=== PATIENT | female | born 1960 | race Caucasian/White ===

== ENCOUNTER 2020-10-02 12:48 | Outpatient (REF) | payer BC, SELFPAY ==
--- NOTE | ~2020-10-02 | MM_ITS ---
EXAMINATION: MM DIAGNOSTIC DIGITAL BREAST TOMOSYNTHESIS, RIGHT CLINICAL INFORMATION: Short interval six-month follow-up probable benign asymmetry outer right breast. No known family history breast cancer. The lifetime risk of breast cancer based on the Tyrer-Cuzick Model is 17%. COMPARISON: Mammography: 03/09/2020, 03/04/2020 (BI-RADS 0), 05/16/2019, 11/10/2017 TECHNIQUE: Digital breast tomosynthesis is performed in both the craniocaudal and mediolateral oblique views along with computer-aided detection (CAD). Synthesized 2D images are generated from the tomosynthesis. FINDINGS: The breasts are heterogeneously dense, which may obscure small masses (ACR BI-RADS breast composition Category c). Parenchymal pattern is similar to prior exams. There is no developing density or interval mass or architectural change in the area of recent concern mid to posterior outer right breast. There are no abnormal calcifications. The axilla and skin contours are unremarkable. Results are provided to the patient at time of visit by the technologist. Right breast will be reassessed again at time of annual bilateral exam, due in 6 months. MM/MM tomosynthesis diagnostic RT IMPRESSION: No significant changes. No developing density or interval architectural abnormality in the outer breast. ASSESSMENT: BI-RADS 3: Probably Benign RECOMMENDATION: Diagnostic mammography at time of annual bilateral exam, due in 6 months. This patient's information was entered into a reminder system with a target due date for their next mammogram.
== END 2020-10-02 12:49 | disposition home or self-care (01) ==
LOC: HO.MAMMO 12:48
PROVIDERS: PCP Internal Medicine; Visit Provider Internal Medicine
DX: R92.8 Other abnormal and inconclusive findings on diagnostic imaging of breast (principal)
CPT/HCPCS: 77061; 77065

== ENCOUNTER 2021-04-05 12:44 | Outpatient (REF) | payer BC, SELFPAY ==
--- NOTE | ~2021-04-05 | MM_ITS ---
EXAMINATION: MM DIAGNOSTIC DIGITAL BREAST TOMOSYNTHESIS, BILATERAL CLINICAL INFORMATION: Six-month follow-up right breast for density. Yearly left breast. The lifetime risk of breast cancer based on the Tyrer-Cuzick Model is 16.7%. COMPARISON: Mammography: October 02, 2020 and studies dating back to September 02, 2016 TECHNIQUE: Digital breast tomosynthesis is performed in both the craniocaudal and mediolateral oblique views along with computer-aided detection (CAD). Synthesized 2D images are generated from the tomosynthesis. FINDINGS: The breasts are heterogeneously dense, which may obscure small masses (ACR BI-RADS breast composition Category c). There are no significant masses, abnormal calcifications, or other abnormalities. Results are provided to the patient at time of visit by the technologist. MM/MM tomosynthesis diagnostic BI IMPRESSION: There are no significant changes from prior study. ASSESSMENT: BI-RADS 1: Negative RECOMMENDATION: Routine annual mammography screening due in 12 months. This patient's information was entered into a reminder system with a target due date for their next mammogram.
== END 2021-04-05 12:45 | disposition home or self-care (01) ==
LOC: HO.MAMMO 12:44
PROVIDERS: PCP Internal Medicine; Visit Provider Internal Medicine
DX: R92.2 Inconclusive mammogram (principal)
CPT/HCPCS: 77062; 77066

== ENCOUNTER 2021-04-18 11:40 | Emergency (ER) | payer BC, SELFPAY ==
--- NOTE | ~2021-04-18 | XR_ITS ---
EXAMINATION: XR ELBOW, RIGHT CLINICAL INFORMATION: Right elbow fracture, follow-up. COMPARISON: 04/18/2021 right elbow radiographs at 12:18 PM TECHNIQUE: AP, lateral, and oblique views of the right elbow. XR/XR elbow RT min 3V FINDINGS/IMPRESSION: Positioning is suboptimal limiting evaluation. Known proximal ulnar and radial fractures demonstrate improved anatomic alignment status post reduction.
--- NOTE | ~2021-04-18 | XR_ITS ---
EXAMINATION: RIGHT HAND/WRIST, RIGHT ELBOW AND RIGHT FOREARM CLINICAL INFORMATION: Fall. COMPARISON: None TECHNIQUE: Right hand/wrist 4 views. Right elbow 3 views, right forearm 2 views. FINDINGS: Right elbow: There is a comminuted fracture proximal ulna with lateral radial dislocation. Suspect a small fracture involving the radial head as well. Patient was unable to flex elbow joint secondary to joint effusion. Right forearm: There is no additional fracture seen besides the proximal comminuted humeral fracture and a chip fracture involving the right radial head with dislocation of the radius. Right hand and wrist: There is no visible acute fracture, dislocation or subluxation seen. The soft tissues are normal. XR/XR hand wrist RT IMPRESSION: Comminuted fracture proximal ulna with displacement. Radial head chip fracture with dislocated radial head at the joint with moderate joint effusion. No additional fracture seen in the right hand or the right forearm.
--- NOTE | ~2021-04-18 | XR_ITS ---
EXAMINATION: RIGHT HAND/WRIST, RIGHT ELBOW AND RIGHT FOREARM CLINICAL INFORMATION: Fall. COMPARISON: None TECHNIQUE: Right hand/wrist 4 views. Right elbow 3 views, right forearm 2 views. FINDINGS: Right elbow: There is a comminuted fracture proximal ulna with lateral radial dislocation. Suspect a small fracture involving the radial head as well. Patient was unable to flex elbow joint secondary to joint effusion. Right forearm: There is no additional fracture seen besides the proximal comminuted humeral fracture and a chip fracture involving the right radial head with dislocation of the radius. Right hand and wrist: There is no visible acute fracture, dislocation or subluxation seen. The soft tissues are normal. XR/XR forearm RT 2V IMPRESSION: Comminuted fracture proximal ulna with displacement. Radial head chip fracture with dislocated radial head at the joint with moderate joint effusion. No additional fracture seen in the right hand or the right forearm.
--- NOTE | ~2021-04-18 | XR_ITS ---
EXAMINATION: RIGHT HAND/WRIST, RIGHT ELBOW AND RIGHT FOREARM CLINICAL INFORMATION: Fall. COMPARISON: None TECHNIQUE: Right hand/wrist 4 views. Right elbow 3 views, right forearm 2 views. FINDINGS: Right elbow: There is a comminuted fracture proximal ulna with lateral radial dislocation. Suspect a small fracture involving the radial head as well. Patient was unable to flex elbow joint secondary to joint effusion. Right forearm: There is no additional fracture seen besides the proximal comminuted humeral fracture and a chip fracture involving the right radial head with dislocation of the radius. Right hand and wrist: There is no visible acute fracture, dislocation or subluxation seen. The soft tissues are normal. XR/XR elbow RT 2V IMPRESSION: Comminuted fracture proximal ulna with displacement. Radial head chip fracture with dislocated radial head at the joint with moderate joint effusion. No additional fracture seen in the right hand or the right forearm.
--- NOTE | 2021-04-18 12:27 | ED.UPPEXIN ---
HPI - Extremity Injury (Upper) General Chief Complaint: Extremity Injury, Upper Stated Complaint: FALL R ARM WRIST SHOULDER Time Seen by Provider: 04/18/21 12:26 Source: patient and family Mode of arrival: ambulatory Limitations: no limitations History of Present Illness HPI narrative: 60 y/o right hand dominant female with no significant medical history presenting to the ER today after she fell today while helping her brother move. She was walking down three steps when she missed a step and fell backward onto her right elbow. She heard a snap. She had immediate pain and was unable to move her right arm. She did not hit her head or lose consciousness. Pain is 10/10 with any movement, 6/10 at rest with adduction. complaint: injury to: right and elbow Onset (ago): minute(s) Other Extremity Injury: right: elbow Other injuries: none Handedness: right Place: home Severity: severe Severity scale (1-10): 10 Relieving factors: cold therapy and immobilization Exacerbating factors: movement of extremity Context: fall Associated symptoms: nausea/vomiting Treatments prior to arrival: cold therapy Related Data Previous Rx's Medication Instructions Recorded oxycodone 5 mg tablet 5 mg PO Q6H PRN #10 tab 04/18/21 Allergies Allergy/AdvReac Type Severity Reaction Status Date / Time No Known Allergies Allergy Verified 04/18/21 12:58 [No Known Allergies*] Review of Systems Review of Systems: Constitutional: No Fever, No Chills Cardiovascular: No Chest Pain, No SOB Respiratory: No Cough, No Sputum Gastrointestinal: + Nausea, No Vomiting, No Diarrhea, No abdominal Pain Genitourinary: No Dysuria, No Urinary Frequency, No Hematuria Musculoskeletal: + joint pain, No Myalgias Skin: No Skin Lesions, No rash Neuro: No Weakness, No Numbness, No Dizziness, No Headache Psych: + Anxiety/Panic, No Depression Heme/Lymph: No Bruising PMFSH Past Medical History Medical History (Updated 04/18/21 @ 13:41 by KIM Pearson) No known health problems Social History Social History Advance Directives: No Advance Directives Information Provided: No Patient : No Physical Exam Vital Signs: Vital Signs: Last Vital Signs Temp 98.8 F 04/18/21 12:56 Pulse 70 04/18/21 12:56 Resp 18 04/18/21 12:56 BP 157/75 H 04/18/21 12:56 Pulse Ox 98 04/18/21 12:56 Body Mass Index 25.3 Appearance: Alert. Oriented X3. No acute distress. HEENT: normal inspection CVS: Normal heart rate and rhythm. Pulses normal. Respiratory: No respiratory distress. Skin: Skin warm and dry. Normal skin color. Normal skin turgor. No rashes. Extremities: right arm held in adduction, deformity of lateral right elbow, no open wounds, unable to extend right elbow or move arm. unable to supinate due to pain. normal inspection, palpation and ROM of the right wrist. 2+ radial pulse, normal ROM of all digits and equal hand grasps bilaterally. Neuro: Oriented X 3. No motor deficit. No sensory deficit. Course Course Course Narrative: 60 y/o female with no medical problems presents to the ER with severe right elbow pain s/p fall. +deformity on exam with limited ROM. XR done from the waiting room showing proximal ulnar and radial fractures with dislocated radial head. Patient brought back into [facility] from XR. c/o nausea and severe pain - oxycodone, tylenol and zofran ordered. will get ortho consulted. Reevaluation(s) Reevaluation #1: Ran into Orthopedic team who were quick to come to the bedside to evaluate and reduce. IM bupivicane injected for local anesthesia with good effect. Better alignment noted on repeat XR. Patient placed in a splint by Dr. Licona and Kaylie Godoy PA-C. Plan for follow up in the office tomorrow and surgical repair on Monday. Patient appreciative of care and agrees with plan. Stable for d/c home with PO oxycodone and ortho follow up. Discharge Plan Discharge Clinical Impression: Fracture of proximal end of radius and ulna Qualifiers: Encounter type: initial encounter Fracture type: closed Laterality: right Qualified Code(s): S52.001A - Unspecified fracture of upper end of right ulna, initial encounter for closed fracture Patient Disposition: Home, Self-Care Instructions: ORIF of an Elbow Fracture (DC) Additional Instructions: Your x-rays today showed your broke both of the bones of your forearm, up near your elbow. Dr. Licona the criminal intelligence specialist helped to put them into a better position. You will require surgical repair. Follow up with Dr. Licona in the office tomorrow and plan for surgery on Monday. Wear the sling provided to help support your arm. Elevate your arm under pillows whenever possible. Take the prescribed oxycodone as needed for severe pain. Take Tylenol 975 mg every 6 hours around the clock for pain. Prescriptions: New oxycodone 5 mg tablet 5 mg PO Q6H PRN (Reason: pain) Qty: 10 RF: 0 Referrals: Kobe Licona MD [Physician] - 1 day
[2021-04-18] MEDS: Ondansetron ODT 4 MG TAB.RAPDIS TRANSLINGU (12:53)
[2021-04-18] MEDS: Acetaminophen 325 MG TABLET 975 MG PO (12:53)
[2021-04-18] MEDS: oxyCODONE HCl Immed Release 5 MG TABLET PO (12:54)
[2021-04-18 12:56] VITALS: BP 157/75; PULSE 70; RESP 18; TEMP 37.1; O2SAT 98; BMI 25.3
--- NOTE | 2021-04-18 13:27 | PM.CNOR ---
History of Present Illness HPI Consult date: 04/18/21 <Kaylie Godoy PA-C - Last Filed: 04/19/21 10:24> Chief complaint: FALL R ARM WRIST SHOULDER <Kaylie Godoy PA-C - Last Filed: 04/19/21 10:24> Narrative: Ms. Loaiza is a 60 yo female who presents to the ER after sustaining a fall while trying to help her brother move. She states that she was walking down some stairs when she fell backwards landing on her right elbow. She felt immediate pain and therefore presented to the ED where x-rays where obtained and she was found to have a radial head dislocation and a proximal ulna fracture. Orthopedics was then consulted for further evaluation and treatment. <Kaylie Godoy PA-C - Last Filed: 04/19/21 10:24> Review of Systems Review of Systems: Yes all other systems are reviewed and are negative <Kaylie Godoy PA-C - Last Filed: 04/19/21 10:24> [facility] Past Medical History Medical History: Medical History (Updated 04/19/21 @ 10:21 by Kaylie Godoy PA-C) Closed fracture of right olecranon process No known health problems <Kaylie Godoy PA-C - Last Filed: 04/19/21 10:24> Social History Social History: Social History (Updated 04/19/21 @ 09:55 by KRISTOFER Hylton) Alcohol intake: never Patient Tobacco Use Status: Never used Tobacco Current occupation: Rt handed <Kaylie Godoy PA-C - Last Filed: 04/19/21 10:24> Meds Allergies/Adverse reactions: Allergies Allergy/AdvReac Type Severity Reaction Status Date / Time No Known Allergies Allergy Verified 04/18/21 12:58 [No Known Allergies*] <Kaylie Godoy PA-C - Last Filed: 04/19/21 10:24> Physical Exam Vital Signs: Vital Signs: Last Vital Signs Temp 98.8 F 04/18/21 12:56 Pulse 70 04/18/21 12:56 Resp 18 04/18/21 12:56 BP 157/75 H 04/18/21 12:56 Pulse Ox 98 04/18/21 12:56 Body Mass Index 25.3 <Kaylie Godoy PA-C - Last Filed: 04/19/21 10:24> Const: General: cooperative, healthy appearing and no acute distress <Kaylie Godoy PA-C - Last Filed: 04/19/21 10:24> Resp: Effort & Inspection: normal respiratory effort and able to speak in complete sentences <Kaylie Godoy PA-C - Last Filed: 04/19/21 10:24> Cardio: Rate: regular rate <Kaylie Godoy PA-C - Last Filed: 04/19/21 10:24> Peripheral pulses: Peripheral pulses 2+ throughout <Kaylie Godoy PA-C - Last Filed: 04/19/21 10:24> GI: Palpation (GI): Soft to palpation <Kaylie Godoy PA-C - Last Filed: 04/19/21 10:24> Skin: Lesions: no lesions <LUIS EDUARDO GomezVeena - Last Filed: 04/19/21 10:24> Rashes: no rashes <Kaylie Godoy PA-C - Last Filed: 04/19/21 10:24> Extrem: Other: Right elbow notable deformity and held in adduction. Skin is intact with no abrasions or lesions. Tenderness to palpation of the medial and lateral epicondyles. Patient is unable to perform ROM. Sensation intact. Radial pulse intact. <Kaylie Godoy PA-C - Last Filed: 04/19/21 10:24> Results Labs Labs: All other labs normal. <Kaylie Godoy PA-C - Last Filed: 04/19/21 10:24> Assessment and Plan (1) Closed fracture of right olecranon process: Status: Acute <Kaylie Godoy PA-C - Last Filed: 04/19/21 10:24> Ms. Loaiza is a 60 yo right hand dominant female who presented to the ED after sustaining a fall earlier today while helping her brother move. She states that she was walking down the stairs when she missed a step landing on her right elbow. She felt immediate pain and presented to the ED where x-rays were obtained and she was found to have a proximal ulna fracture as well as a dislocated radial head. Orthopedics was then consulted for further evaluation and treatment. Dr. Licona was available to see the patient with me. At bedside the patient was given a local anesthetic and closed reduction was attempted of the radial head. Portable x-rays obtained in the ED revealed good placement of the radial head after reduction. The patient was then placed in a posterior splint, given a sling and instructed to follow-up with orthopedics outpatient for further treatment and likely surgical intervention which was discussed with the patient. <Kaylie Godoy PA-C - Last Filed: 04/19/21 10:24> (2) Dislocation of radial head, right, closed: Status: Acute <Kaylie Godoy PA-C - Last Filed: 04/19/21 10:24> Procedures Date of Service Date of Service: 04/18/21 <Kaylie Godoy PA-C - Last Filed: 04/19/21 10:24>
[2021-04-18 13:59] VITALS: RESP 18
== END 2021-04-18 14:00 | disposition home or self-care (01) ==
PROVIDERS: Emergency Provider Internal Medicine; PCP Internal Medicine
DX: S52.021A Displaced fracture of olecranon process without intraarticular extension of right ulna, initial encounter for closed fracture (principal); S53.004A Unspecified dislocation of right radial head, initial encounter; S52.001A Unspecified fracture of upper end of right ulna, initial encounter for closed fracture; M25.521 Pain in right elbow; W10.9XXA Fall (on) (from) unspecified stairs and steps, initial encounter; Y93.9 Activity, unspecified; Y92.009 Unspecified place in unspecified non-institutional (private) residence as the place of occurrence of the external cause; Y99.9 Unspecified external cause status; Z79.899 Other long term (current) drug therapy
CPT/HCPCS: 73070; 73080; 73090; 73110; 73130; 99283; 99284

== ENCOUNTER → 2021-04-19 09:44 | Outpatient (BNVA) | payer BC, SELFPAY | PROVIDERS: PCP Internal Medicine; Visit Provider Physician Assistant ==

== ENCOUNTER 2021-04-20 09:09 | Day surgery (SDC) | payer BC, SELFPAY ==
--- NOTE | 2021-04-19 13:10 | P.CONAN_ITS ---
Documented by User: Delia Olmedo NP 04/19/21 13:11 HPI - Anesthesia Eval Consult details Narrative: 60yo F for Right Olecranon ORIF [facility] Active Problems Active Problems: All Active Problems (Updated 04/19/21 @ 10:21 by Kaylie Godoy PA-C) Dislocation of radial head, right, closed (Acute) Closed fracture of right olecranon process (Acute) Past Medical History Medical History Closed fracture of right olecranon process No known health problems Social History Social History Alcohol intake: never Patient Tobacco Use Status: Never used Tobacco Second Hand Smoke Exposure: No Use of substances other than those prescribed or required for medical reasons: No Are you DNR?: No Advance Directives: No Advance Directives Information Provided: No Advance Directives on File: No Current occupation: Rt handed Meds Allergies Allergy/AdvReac Type Severity Reaction Status Date / Time No Known Allergies Allergy Verified 04/18/21 12:58 [No Known Allergies*] Exam Exam Date and Time: April 19, 2021 1310 Assessment and Plan Assessment Anesthesia Assessment: Chart Reviewed Documented by User: Jackie Pal MD 04/20/21 10:15 [facility] Past Medical History Medical History Closed fracture of right olecranon process No known health problems Family History Family history of problems with anesthesia: No Surgical History History of Problems with Anesthesia: No Social History Social History Alcohol intake: never Patient Tobacco Use Status: Never used Tobacco Second Hand Smoke Exposure: No Use of substances other than those prescribed or required for medical reasons: No Are you DNR?: No Advance Directives: No Advance Directives Information Provided: No Advance Directives on File: No Current occupation: Rt handed Meds Allergies Allergy/AdvReac Type Severity Reaction Status Date / Time No Known Allergies Allergy Verified 04/18/21 12:58 [No Known Allergies*] Exam Airway Mallampati Class: II TM Dist: >3cm Neck ROM: Full Assessment and Plan Assessment Anesthesia Assessment: Anesthesia Plan Discussed Final Anesthetic Review Family History of Problems with Anesthesia: No History of Problems with Anesthesia: No NPO: Yes ASA Class: I Final Preanesthetic Review: No Changes in Pt Med Stat, Meds/Allgs Chart Reviewed, Consent Obtained/Reviewed and Anes Risks/Benef Reviewed Patient Risk: Low Procedure Risk: Low Assessment/Block/Sedation in SS: Assess/Block/Sedation-SS Anesthetic Plan Anesthetic Plan: GA Disposition: Standard PACU
[2021-04-20] VITALS (8 sets, daily range): BP systolic 140–161; BP diastolic 55–75; PULSE 66–84; RESP 16–18; TEMP 36.1–36.8; O2SAT 94–98; BMI 25.3
--- NOTE | ~2021-04-20 | FL_ITS ---
EXAMINATION: XR FLUOROSCOPY WITH IMAGES CLINICAL INFORMATION: Fracture right elbow COMPARISON: None. TECHNIQUE: Fluoroscopy performed by Dr. Livan Bullock. Fluoroscopy time: 0.6 minutes DAP: 1.31 mGycm2 Images: 4 FINDINGS: The proximal left fibular fracture is stabilized with metallic plate and screws. The fracture fragments in satisfactory alignment. There is normal alignment of the elbow joint. The soft tissues are normal. FL/FL guidance in OR IMPRESSION: Satisfactory alignment of comminuted fracture proximal ulna status post ORIF.
--- NOTE | ~2021-04-20 | CT_ITS ---
EXAMINATION: CT RIGHT ELBOW CLINICAL INFORMATION: Follow-up proximal radial and ulnar fractures. COMPARISON: None TECHNIQUE: Axilla and 2 mm thin imaging of right elbow was performed. Subsequently 2 minutes thin sagittal coronal images of the elbow were obtained. DLP 109 FINDINGS: There is a comminuted fracture right proximal ulna with mild displacement. The ulnohumeral alignment is maintained however. There is no fracture seen involving the proximal radius. There is a mild nondisplaced chip fracture involving the right posterior lateral epicondyle with 63/7 and sagittal image 10/4. There is mild joint effusion and posterior elbow proximal forearm swelling. CT/CT elbow RT wo con IMPRESSION: Comminuted proximal ulnar fracture without dislocation. Intact radial head and the proximal radius. Small chip fracture lateral epicondyle. Mild joint effusion and right posterior proximal forearm soft tissue swelling.
--- NOTE | 2021-04-20 10:04 | MHC.SHP ---
Pre-Procedural Eval Section A Date of Service: 04/20/21 The patient is an INPATIENT: No Changes since office visit: Yes Patient answered all questions; No Cold of Flu in the past 2 weeks, No New Medical Problems and No Changes in Medication The History & Physical has been completed within 30 days and I have reviewed it.: Yes Section B Chief Complaint: fx of olecranon process Allergies: Allergies Allergy/AdvReac Type Severity Reaction Status Date / Time No Known Allergies Allergy Verified 04/18/21 12:58 [No Known Allergies*] Plan I have reviewed the history and physical and performed a pertinent physical examination on my patient. No changes have occurred unless specified.
--- NOTE | 2021-04-20 12:57 | P.BOP_ITS ---
Brief Operative Note Date of Service: 04/20/21 Pre-op diagnosis: right elbow intra articular olecranon fracture and radial head dislocation ( reverse Monteggia) Post-op diagnosis: same Procedure: ORIF olecranon LCL repair Implants: Strykler olecranon plate Lopez and nephew 4.5 helacoil and 2.3 all suture suture anchoe Surgeon: Kobe Licona MD Anesthesia: GETA and local Was an Respiratory Therapy Manager used for this Procedure?: Yes Respiratory Therapy Manager: Tiff Bynum Estimated blood loss (mL): 50 IV fluids (mL): 1,200 Pathology: none sent Condition: stable Disposition: PACU
--- NOTE | 2021-04-20 13:04 | W.PM.OPN ---
Operative Note Operative Note Date of Service: 04/20/21 Narrative: Pre-op diagnosis: right elbow intra articular olecranon fracture and radial head dislocation ( reverse Monteggia) Post-op diagnosis: same Procedure: ORIF olecranon LCL repair Implants: Strykler olecranon plate Lopez and nephew 4.75mm helacoil and 2.8 mmall suture suture anchor Surgeon: Kobe Licona MD Anesthesia: GETA and local Was an Psychologist Engineering used for this Procedure?: Yes Psychologist Engineering: Tiff Bynum Estimated blood loss (mL): 50 IV fluids (mL): 1,200 Pathology: none sent Condition: stable Disposition: PACU Procedure in detail: Patient was brought to the operating room and placed supine on the surgical table. She was prepped and draped in standard sterile fashion and a time out was called to identify proper site, proper procedure and IV antibiotics per weight were administered. I began by making a direct posterior incision over the olecranon tip proximally and extending distally approximately 10 cm. Dissection was taken down to the dorsal aspect of the olecranon. There was a comminuted intra-articular fracture of the olecranon. In addition the posterolateral capsuloligamentous complex was disrupted and the radial head was dislocating posteriorly. I cleaned up the fracture with a combination of irrigation, curettage and a rongeur. I used a large tenaculum to reduce the primary fragments of the fracture and then placed a olecranon compression plate. I placed a locking screw proximally and then compressed through the distal hole of the plate. Biplanar fluoroscopy was used to confirm plate placement and fracture reduction. I was very happy with the articular reduction of the fracture given the extent of comminution. I then placed the remaining screws in the fracture fragments. Proximally I used locking screws and distally nonlocking screws. Standard AO technique was used and again biplanar fluoroscopy was used to confirm screw location and fracture reduction. I took the elbow through range of motion and I was very happy with the stability of the fracture but on coming out of extension she was continuing to sublux her radial head posterolaterally. I then placed a Lopez and Nephew Healicoil 4.75 suture anchor through the lateral olecranon adjacent to the plate. Attached to this with a was a FiberWire and a FiberTape. I used this to run a mattress suture through the capsuloligamentous complex and reapproximate its insertion on the lateral aspect of the proximal ulna. I then used a 2 point a All suture suture anchor to continue this repair up distally until I had an excellent repair of the ligamentous complex. The humeral attachments were stable. Prior to this I examined the radial head which appeared intact without any obvious cartilage damage. I then took the elbow through range of motion and it was stable. The radial head was not subluxing and she had full range of motion. I then irrigated copiously and closed with absorbable suture and alex. 30 mL of 0.5% Marcaine without epinephrine was applied to the surrounding soft tissues.Sterile dressings were applied. The patient was placed into a well-padded posterior splint with a varus mold to protect the lateral elbow. She was then extubated brought to recovery room in stable condition there were no known complications.
[2021-04-20] MEDS: oxyCODONE HCl Immed Release 5 MG TABLET PO (13:25)
[2021-04-20] MEDS: Acetaminophen 325 MG TABLET 650 MG PO (13:26)
[2021-04-20] MEDS: HYDROmorphone HCl 0.5 MG/0.5 ML SYRINGE IVPUSH (13:40)
== END 2021-04-20 14:45 | disposition home or self-care (01) ==
PROVIDERS: PCP Internal Medicine; Visit Provider Orthopaedic Surgery
PROC: (CPT 24685; principal; 2021-04-20 14:30)
DX: S52.031A Displaced fracture of olecranon process with intraarticular extension of right ulna, initial encounter for closed fracture (principal); S53.094A Other dislocation of right radial head, initial encounter; W10.8XXA Fall (on) (from) other stairs and steps, initial encounter; Y93.01 Activity, walking, marching and hiking; Y92.22 Religious institution as the place of occurrence of the external cause; Y99.8 Other external cause status
CPT/HCPCS: 24685; 73200; C1713; J0690; J1100; J1170; J1885; J2250; J2405; J3010

== ENCOUNTER 2021-05-03 09:01 | Outpatient (REF) | payer BC, SELFPAY ==
--- NOTE | ~2021-05-03 | XR_ITS ---
EXAMINATION: XR ELBOW, RIGHT CLINICAL INFORMATION: Right elbow pain. COMPARISON: Right elbow radiographs dated 04/18/2021, right elbow CT scan dated 04/20/2021. TECHNIQUE: AP, lateral, and oblique views of the right elbow. FINDINGS: The patient is status post ORIF of the proximal ulna with posterior fixation plate and multiple securing cortical screws showing good anatomic alignment and no evidence for hardware malfunction. The distal humerus and proximal radius are intact. There is mild soft tissue swelling. Multiple surgical skin alex are seen posteriorly. XR/XR elbow RT min 3V IMPRESSION: Post surgical changes showing no overt hardware abnormality and good anatomic alignment.
== END 2021-05-03 09:02 | disposition home or self-care (01) ==
LOC: HO.HOSX 09:01
PROVIDERS: Visit Provider Physician Assistant
DX: S52.021D Displaced fracture of olecranon process without intraarticular extension of right ulna, subsequent encounter for closed fracture with routine healing (principal); S53.00 Unspecified subluxation and dislocation of radial head
CPT/HCPCS: 73080

== ENCOUNTER → 2021-05-17 08:28 | Outpatient (BNVA) | payer BC, SELFPAY | PROVIDERS: PCP Internal Medicine; Visit Provider Orthopaedic Surgery ==

== ENCOUNTER 2021-06-07 08:18 | Outpatient (REF) | payer BC, SELFPAY ==
--- NOTE | ~2021-06-07 | XR_ITS ---
EXAMINATION: XR ELBOW, RIGHT CLINICAL INFORMATION: M25.521 - Pain in right elbow COMPARISON: Radiographs right elbow 05/03/2021 TECHNIQUE: Right elbow is imaged in 4 views. FINDINGS: Proximal ulnar fracture is reduced with plate and screws. Hardware is intact. There is no destructive process or dislocation. The skin alex have been removed. Alignment is near-anatomic. Fracture lines are still partly visible. XR/XR elbow RT min 3V IMPRESSION: Healing fracture proximal ulnar. Hardware intact. No change in alignment. No destructive process.
== END 2021-06-07 08:19 | disposition home or self-care (01) ==
LOC: HO.HOSX 08:18
PROVIDERS: Visit Provider Physician Assistant
DX: S53.00 Unspecified subluxation and dislocation of radial head (principal); S52.021D Displaced fracture of olecranon process without intraarticular extension of right ulna, subsequent encounter for closed fracture with routine healing
CPT/HCPCS: 73080

== ENCOUNTER 2021-06-17 10:10 | Outpatient (REF) | payer BC, SELFPAY ==
[2021-06-17 10:39] LABS: Appearance Urine CLEAR; Color Urine YELLOW; Glucose Urine UA NEG (NEG); Leukocyte Esterase Urine NEG (NEG); Nitrite Urine NEG (NEG); PH 5.5 (5.0-8.0); Specific Gravity - Urine 1.025 (1.005-1.025); Urine Blood NEG (NEG); Urine Ketones NEG (NEG); Urine Protein NEG (NEG-TRACE)
[2021-06-17 10:56] LABS: RBC Urine 0 /HPF (0); Squamous Epithelial Cell Urine TRACE /LPF; WBC Urine 0-2 /HPF (0-4)
== END 2021-06-17 10:11 | disposition home or self-care (01) ==
LOC: HO.LNP 10:10
PROVIDERS: PCP Internal Medicine; Visit Provider Internal Medicine
DX: R31.9 Hematuria, unspecified (principal)
CPT/HCPCS: 81001

== ENCOUNTER 2021-07-26 07:51 | Outpatient (REF) | payer BC, SELFPAY ==
--- NOTE | ~2021-07-26 | XR_ITS ---
EXAMINATION: XR ELBOW, RIGHT CLINICAL INFORMATION: Pain COMPARISON: Previous x-ray most recent May 2021 TECHNIQUE: AP, lateral, and oblique views of the right elbow. FINDINGS: There is a plate and screws transfixing the proximal ulnar fracture. Orthopedic hardware appears unchanged. Alignment appears unchanged. Fracture lines are still seen but are slightly more indistinct suggestive of continued healing. No other fracture is seen. 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 There is a small joint effusion. XR/XR elbow RT 2V IMPRESSION: ORIF of comminuted occipital right humeral fracture.
== END 2021-07-26 07:52 | disposition home or self-care (01) ==
LOC: HO.HOSX 07:51
PROVIDERS: Visit Provider Orthopaedic Surgery
DX: S52.021D Displaced fracture of olecranon process without intraarticular extension of right ulna, subsequent encounter for closed fracture with routine healing (principal); S53.00 Unspecified subluxation and dislocation of radial head
CPT/HCPCS: 73070

== ENCOUNTER 2021-08-06 12:50 | Outpatient (REF) | payer BC, SELFPAY ==
--- NOTE | ~2021-08-06 | MM_ITS ---
EXAMINATION: BONE DENSITOMETRY CLINICAL INDICATION: Osteoporosis. COMPARISON: Baseline BD dated 11/10/2017. TECHNIQUE: Using a Webjam DXA System (software version: 13.1) manufactured by [employer], dual-energy x-ray absorptiometry was performed of the lumbar spine and left hip. The images are of good technical quality. Summary results are attached. FINDINGS: AP SPINE L1-L4: Current: BMD 1.126 g/cm2, Z-score 0.7, T-score -0.4, normal, 3.1% increase from baseline (<5% change is not significant). Baseline: BMD 1.092 g/cm2. LEFT FEMUR, NECK: Current: BMD 0.914 g/cm2, Z-score 0.3, T-score -0.9, normal. Baseline: BMD 0.939 g/cm2. LEFT FEMUR, TOTAL: Current: BMD 0.920 g/cm2, Z-score 0.2, T-score -0.7, normal, 7.4% decrease from baseline (<5% change is not significant). Baseline: BMD 0.993 g/cm2. IDENTIFIED RISK FACTORS: Height loss, history of fracture (adult), secondary osteoporosis, menopause. HISTORY OF FRACTURE: Elbow/forearm. MEDICATIONS: Calcium supplements or multivitamin, vitamin D. MM/XR DEXA axial skeleton IMPRESSION: 1. DIAGNOSIS: Normal bone density based on the lowest T-score value of -0.9 in the femoral neck applying World Health Organization criteria. 2. 10-YEAR FRACTURE RISK PREDICTION, FRAX: Major osteoporotic fracture (clinical spine, forearm, hip or shoulder) 12.6%. Hip fracture 0.7%. 3. Treatment Recommendations: NOF guidelines recommend consideration for treatment in postmenopausal women and men age 50 and older presenting with the following: -A hip or vertebral (clinical or morphometric) fracture. -T-score less than or equal to -2.5 at the femoral neck or spine after appropriate evaluation to exclude secondary causes. -Low bone mass at the hip or spine and a 10-year fracture probability by FRAX of greater than or equal to 3% for hip fracture or greater than or equal to 20% for major osteoporotic fracture based on the [place] adapted WHO algorithm. 4. Other Recommendations: All treatment decisions require clinical judgment and consideration of individual patient factors, including patient preferences, comorbidities, previous drug use, risk factors not captured in the FRAX model (e.g. frailty, falls, vitamin D deficiency, increased bone turnover, interval significant decline in bone density) and possible under or overestimation of fracture risk by FRAX. FUTURE SCAN RECOMMENDATION: People with diagnosed cases of osteoporosis or at high risk for fracture should have regular bone mineral density tests. For patients eligible for Medicare, routine testing is allowed once every 2 years. The testing frequency can be increased to one year for patients who have rapidly progressing disease, those who are receiving or discontinuing medical therapy to restore bone mass, or have additional risk factors.
== END 2021-08-06 12:51 | disposition home or self-care (01) ==
LOC: HO.MAMMO 12:50
PROVIDERS: PCP Internal Medicine; Visit Provider Internal Medicine
DX: Z13.820 Encounter for screening for osteoporosis (principal); Z78.0 Asymptomatic menopausal state; Z87.81 Personal history of (healed) traumatic fracture; Z79.899 Other long term (current) drug therapy
CPT/HCPCS: 77080

== ENCOUNTER 2022-04-07 08:03 | Outpatient (REF) | payer BC, SELFPAY ==
--- NOTE | ~2022-04-07 | MM_ITS ---
EXAMINATION: MM SCREENING DIGITAL BREAST TOMOSYNTHESIS, BILATERAL CLINICAL INFORMATION: Screening. Asymptomatic. The lifetime risk of breast cancer based on the Tyrer-Cuzick Model is 17%. COMPARISON: Mammography: 04/05/2021, 10/02/2020, 03/09/2020, 05/16/2019 TECHNIQUE: Digital breast tomosynthesis is performed in both the craniocaudal and mediolateral oblique views along with computer-aided detection (CAD). Synthesized 2D images are generated from the tomosynthesis. FINDINGS: The breasts are heterogeneously dense, which may obscure small masses (ACR BI-RADS breast composition Category c). There are no significant masses, abnormal calcifications, or other abnormalities. Parenchymal pattern is similar to prior studies. There is no developing density or architectural abnormality. The axilla and skin contours are unremarkable. No significant changes. MM/MM tomosynthesis screening BI IMPRESSION: No mammographic evidence of malignancy. ASSESSMENT: BI-RADS 1: Negative RECOMMENDATION: Routine annual mammography screening. This patient's information was entered into a reminder system with a target due date for their next mammogram.
== END 2022-04-07 08:04 | disposition home or self-care (01) ==
LOC: HO.MAMMO 08:03
PROVIDERS: PCP Internal Medicine; Visit Provider Internal Medicine
DX: Z12.31 Encounter for screening mammogram for malignant neoplasm of breast (principal)
CPT/HCPCS: 77063; 77067

== ENCOUNTER 2022-05-31 16:13 | Outpatient (REF) | payer BC, SELFPAY | END 2022-05-31 16:14 | disposition home or self-care (01) | LOC: HO.LNP 16:13 | PROVIDERS: Visit Provider Internal Medicine | DX: N30.00 Acute cystitis without hematuria (principal) | CPT/HCPCS: 87086 ==

== ENCOUNTER → 2023-01-04 12:11 | Outpatient (BNVA) | payer BC, SELFPAY | PROVIDERS: PCP Internal Medicine; Visit Provider Orthopaedic Surgery ==

== ENCOUNTER 2023-04-13 08:10 | Outpatient (REF) | payer BC, SELFPAY | END 2023-04-13 08:11 | disposition home or self-care (01) | LOC: HO.MAMMO 08:10 | PROVIDERS: PCP Internal Medicine; Visit Provider Internal Medicine | DX: Z12.31 Encounter for screening mammogram for malignant neoplasm of breast (principal) | CPT/HCPCS: 77063; 77067 ==

== ENCOUNTER → 2023-04-13 08:15 | Outpatient (BNV) | payer BC, SELFPAY | PROVIDERS: PCP Internal Medicine; Visit Provider Radiology Diagnostic Radiology | DX: Z12.31 Encounter for screening mammogram for malignant neoplasm of breast (principal) | CPT/HCPCS: 77063; 77067 ==

== ENCOUNTER 2023-05-15 08:19 | Outpatient (AMB) | payer BC, SELFPAY ==
[2023-05-15 08:21] VITALS: BMI 25.6
--- NOTE | 2023-05-15 08:21 | MHC.OFFVIS ---
Intake Vital Signs 05/15/23 08:21 Height 5 ft 5 in Weight 154 lb BMI 25.6 Intake Visit Reasons: OV- ORIF R OLECRANON 04/20/21 NE Intake Note: Eleanor is a 62 year old right hand dominant female who presents today for a follow up visit of her right elbow s/p ORIF of the Right Olecranon 04/20/2021. Patient reports that she is having pain with certain motions, and decreased ROM. She attributes this to a large pocket of swelling on the elbow. Allergies No Known Allergies [No Known Allergies*] Allergy (Verified 01/04/23 12:34) HPI OV- ORIF R OLECRANON 04/20/21 NE HPI Details Eleanor is a 62 year old woman who presents with complaints of right elbow pain & swelling. She complains of pain and limited ROM of her right elbow, which she feels is a result of swelling just above her elbow. She is ~2 years S/P right olecranon ORIF. [facility] Medical History Closed fracture of right olecranon process No known health problems Social History Alcohol intake: never Patient Tobacco Use Status: Never used Tobacco Second Hand Smoke Exposure: No Current occupation: Rt handed Review of Systems Const All systems reviewed & are unremarkable except as noted in HPI and below Physical Exam Vital Signs: BMI result Body Mass Index 25.6 Const General: no acute distress, alert and awake Orientation/consciousness: patient oriented x3 HEENT Head: Yes normocephalic and Yes atraumatic Eyes EOM: EOMs intact bilaterally Resp Effort & Inspection: normal respiratory effort and able to speak in complete sentences Cardio Jugular venous distension: no JVD Skin General skin exam: turgor normal Rashes: no rashes Neuro General: patient oriented x3 Extrem Other: aseptic painless olecrnon bursal swelling ulna orif inc c/d/i elbow ROM full Psych Appearance: grossly normal Affect: normal affect Attitude: cooperative Results Reviewed Results Reviewed: I personally reviewed relevant radiographs. Healed olecranon fracture with no hardware complications Assessment & Plan Assessment & Plan (1) Olecranon bursitis, right elbow: Code(s): M70.21 - Olecranon bursitis, right elbow Plan: Minimally symptomatic. Discussed etiology and treatment otpions. No intervention warranted at this time. Follow up as needed. Orders: Orders XR elbow RT 2V Today M25.529 - Pain in unspecified elbow Coding Level of Care Code Est Pt Level 3 (32886) Diagnoses Olecranon bursitis, right elbow M70.21
== END 2023-05-15 09:00 | disposition home or self-care (01) ==
PROVIDERS: PCP Internal Medicine; Visit Provider Orthopaedic Surgery
DX: M70.21 Olecranon bursitis, right elbow (principal)
CPT/HCPCS: 99213

== ENCOUNTER 2023-05-15 08:19 | Outpatient (REF) | payer BC, SELFPAY ==
--- NOTE | ~2023-05-15 | XR_ITS ---
EXAMINATION: XR ELBOW, RIGHT CLINICAL INFORMATION: Pain COMPARISON: 07/26/2021 TECHNIQUE: AP, lateral, and oblique views of the right elbow. FINDINGS: Fixating side plate and screws traversing the olecranon and proximal ulna are stable in position without evidence of loosening or failure. Interval healing of proximal ulnar fracture with no recognizable fracture lines. Interval soft tissue swelling posterior medial elbow at the level of the olecranon. Small calcification again seen adjacent to the radiocapitellar joint. XR/XR elbow RT 2V IMPRESSION: Interval healing fixated proximal ulnar fracture. Interval development posterior medial soft tissue swelling at the level of the olecranon.
== END 2023-05-15 08:20 | disposition home or self-care (01) ==
LOC: HO.HOSX 08:19
PROVIDERS: PCP Internal Medicine; Visit Provider Orthopaedic Surgery
DX: M70.21 Olecranon bursitis, right elbow (principal)
CPT/HCPCS: 73070

== ENCOUNTER 2024-04-18 08:34 | Outpatient (REF) | payer BC, SELFPAY ==
--- NOTE | ~2024-04-18 | MM_ITS ---
EXAMINATION: MM SCREENING DIGITAL BREAST TOMOSYNTHESIS, BILATERAL CLINICAL INFORMATION: Screening. Asymptomatic. COMPARISON: Mammography: Comparison is made with available priors TECHNIQUE: Digital breast mammography with tomosynthesis is performed in both the craniocaudal and mediolateral oblique views along with computer-aided detection (CAD). FINDINGS: The breasts are heterogeneously dense, which may obscure small masses (ACR BI-RADS breast composition Category c). There are no significant masses, abnormal calcifications, or other abnormalities. MM/MM tomosynthesis screening BI IMPRESSION: No mammographic evidence of malignancy. ASSESSMENT: BI-RADS BI-RADS 1 - Negative RECOMMENDATION: Routine annual mammography screening. 1 year F/U This examination should not preclude the clinical evaluation of a suspicious palpable abnormality. This patient's information was entered into a reminder system with a target due date for their next mammogram. Electronically signed by: Alexia Leavitt DO 04/29/2024 02:15 PM EDT
== END 2024-04-18 08:35 | disposition home or self-care (01) ==
LOC: HO.MAMMO 08:34
PROVIDERS: PCP Internal Medicine; Visit Provider Internal Medicine
DX: Z12.31 Encounter for screening mammogram for malignant neoplasm of breast (principal)
CPT/HCPCS: 77063; 77067

== ENCOUNTER → 2024-04-18 08:45 | Outpatient (BNV) | payer BC, SELFPAY | PROVIDERS: PCP Internal Medicine; Visit Provider Internal Medicine | DX: Z12.31 Encounter for screening mammogram for malignant neoplasm of breast (principal) | CPT/HCPCS: 77063; 77067 ==

== ENCOUNTER 2024-06-21 08:18 | Outpatient (REF) | payer BC, SELFPAY ==
--- NOTE | ~2024-06-21 | XR_ITS ---
EXAMINATION: XR RIBS, LEFT CLINICAL INFORMATION: Left-sided rib pain. COMPARISON: Chest radiographs dated 12/01/2017. TECHNIQUE: PA view the chest as well as 3 views of the left ribs. FINDINGS: Lungs are clear. No consolidation, pneumothorax, or pleural effusion. The cardiomediastinal silhouette and pulmonary vasculature are normal. Osseous structures are unremarkable. Ribs are intact. No fractures are identified. XR/XR ribs LT min 3V w CXR1V IMPRESSION: No displaced fracture. Electronically signed by: Denny Winters MD 06/21/2024 11:13 AM ERICK
== END 2024-06-21 08:19 | disposition home or self-care (01) ==
LOC: HO.XRAY 08:18
PROVIDERS: PCP Internal Medicine; Visit Provider Internal Medicine
DX: R07.81 Pleurodynia (principal)
CPT/HCPCS: 71101

== ENCOUNTER 2024-12-10 13:08 | Outpatient (REF) | payer BC, SELFPAY ==
--- OUTSIDE RECORDS SUMMARY | 2024-12-10 13:11 | XMS_ITS | Patient Health Record ---
Author Organization Mau Fnog MD Address [address] [place], [place] [id number] Care Team Providers Care Manager Order Name Role Phone Mau Fong Primary Care Provider Allergies No Known Allergies Results Component Value Reference Range Notes MM tomosynthesis screening B I Reviewed date:05/02/2024 09:34:57 PM Interpretation: Performing Lab: Notes/Report: [address] [place] [address] Mammography Report Signed Patient: Garrison Terry MR#: [id number] 2 : 1960 Acct:[id number] Age/Sex: 63 / F ADM Date: 04/18/24 Loc: HO.MAMMO Attending Dr: Mau Fong MD Ordering Physician: Mau Fong MD Results: 1Ne gative Date of Service: 04/18/24 Follow Up: 1 Year From Orig inal Mammogram Procedure(s): MM tomosynthesis screening BI Accession Number(s): [id number] cc: Mau Fong MD EXAMINATION: MM SCREENING DIGITAL BREAST TOMOSYNTHESIS, BILATERAL CLINICAL INFORMATION: Screening. Asymptomatic. COMPARISON: Mammography: Comparison is made with available priors TECHNIQUE: Digital breast mammography with tomosynthesis is performed in both the craniocaudal and mediolateral oblique views along with computer-aided detection (CAD). FINDINGS: The breasts are heterogeneously dense, which may obscure small masses (ACR BI-RADS breast composition Category c). There are no significant masses, abnormal calcifications, or other abnormalities. MM/MM tomosynthesis screening BI IMPRESSION: No mammographic evidence of malignancy. ASSESSMENT: BI-RADS BI-RADS 1 - Negative RECOMMENDATION: Routine annual mammography screening. 1 year F/U This examination should not preclude the clinical evaluation of a suspicious palpable abnormality. This patient's information was entered into a reminder system with a target due date for their next mammogram. Electronically signed by: Alexia Leavitt DO 04/29/2024 02:15 PM EDT RP Dictated By: Alexia Leavitt DO Signed By: <Electronically signed by Alexia Leavitt DO in OV> 04/29/24 1415 DD/ 0845 TD/TT: 04/18/24 0855 Waterproofer Helper: [facility] [address] [place] [address] Mammography Report Signed Patient: Tenzin Terry ra MR#: [id number] 2 : 1960 Acct:[id number] Age/Sex: 63 / F ADM Date: 04/18/24 Loc: HO.MAMMO Attending Dr: Mau Fong MD Ordering Physician: Mau Fong MD Results: 1Ne gative Date of Service: 10/07 Follow Up: 1 Year From Orig inal Mammogram Procedure(s): MM jeff osynthesis screening BI Accession Number(s): [id number] cc: Mau Fong MD EXAMINATION: MM SCREENING DIGITAL BREAST TOMOSYNTHESIS, BILATERAL CLINICAL INFORMATION: Screening. Asymptomatic. COMPARISON: Mammography: Compari son is made with available priors TECHNIQUE: Digital breast mammo graphy with tomosynthesis is performed in both the craniocaudal and med iolateral oblique views along with computer-aided detection (CAD). FINDINGS: The breasts are hete rogeneously dense, which may obscure small masses (ACR BI-RADS breast composition Category c). There are no signifi cant masses, abnormal calcifications, or other abnormalities. M M/MM tomosynthesis screening BI IMPRESSION: No mammographic evid ence of malignancy. ASSESSMENT: BI-RADS BI-RADS 1 - Negative RECOMMENDATION: Routine annual mammo graphy screening. 1 year F/U This examination yara uld not preclude the clinical evaluation of a suspicious palpable abnormality. This patient's infor mation was entered into a reminder system with a target due date for their next mammogram. Electronically eric d by: Alexia Leavitt DO 04/29/2024 02:15 PM EDT RP Dictated By: Alexia Wolfe i, DO Signed By: <Electron ically signed by Alexia Leavitt DO in OV> 04/29/24 1415 DD/ TD/TT: 04/18/24854 Waterproofer Helper: XR ribs LT min 3V w CXR1V Reviewed date:06/21/2024 01:45:57 PM Interpretation: Performing Lab: Notes/Report: [address] [address] XRay Report Signed Patient: Garrison Terry MR#: [id number] 2 : 1960 Acct:[id number] Age/Sex: 63 / F ADM Date: 06/21/24 Loc: HO.TAMMY Attending Dr: Mau Fong MD Ordering Physician: Mau Fong MD Date of Service: 06/21/24 Procedure(s): XR ribs LT min 3V w CXR1V Accession Number(s): [id number] cc: Mau Fong MD EXAMINATION: XR RIBS, LEFT CLINICAL INFORMATION: Left-sided rib pain. COMPARISON: Chest radiographs dated 12/01/2017. TECHNIQUE: PA view the chest as well as 3 views of the left ribs. FINDINGS: Lungs are clear. No consolidation, pneumothorax, or pleural effusion. The cardiomediastinal silhouette and pulmonary vasculature are normal. Osseous structures are unremarkable. Ribs are intact. No fractures are identified. XR/XR ribs LT min 3V w CXR1V IMPRESSION: No displaced fracture. Electronically signed by: Denny Winters MD 06/21/2024 11:13 AM EST RP Dictated By: Denny Winters MD Signed By: <Electronically signed by Denny Winters MD in OV> 06/21/241112 DD/ 2 TD/TT: 06/21/24840 Waterproofer Helper: [place] [address] XRay Report Signed Patient: Tenzin Terry ra MR#: [id number] 2 : 1960 Acct:[id number] Age/Sex: 63 / F ADM Date: 06/21/24 Loc: HO.XRAY Attending Dr: Mau Fong MD Ordering Physician: Mau Fogn MD Date of Service: 06/21/24 Procedure(s): XR rib s LT min 3V w CXR1V Accession Number(s): [id number] cc: Mau Fong MD EXAMINATION: XR RIBS, LEFT CLINICAL INFORMATION: Left-sided rib pain. COMPARISON: Chest radiographs da khushbu 12/01/2017. TECHNIQUE: PA view the chest as well as 3 views of the left ribs. FINDINGS: Lungs are clear. No consolidation, pneumothorax, or pleural effusion. The cardiomediastina l silhouette and pulmonary vasculature are normal. Osseous structures a re unremarkable. Ribs are intact. No fractures are identified. X R/XR ribs LT min 3V w CXR1V IMPRESSION: No displaced fracture. Electronically eric d by: Denny Winters MD 06/21/2024 11:13 AM EST RP Dictated By: Denny Winters MD Signed By: <Electron ically signed by Denny Winters MD in OV> 06/21/241112 DD/ 2 TD/TT: 06/21/24840 Waterproofer Helper: Reason For Referral No Information Medications Medication SIG (Take, Route, Frequency, Duration) Notes Start Date End Date Status Albuterol Sulfate HFA 108 (90 Base) MCG/ACT 1 puff as needed Inhalation every 4 hrs for 30 days 01/26/2023 Active Atorvastatin Calcium 20 MG TAKE 1 TABLET BY MOUTH EVERY DAY Active Cetirizine HCl 10 MG 1 tablet Orally [...] a day for 30 days Not-Takin g FLUoxetine HCl 10 MG TAKE 1 CAPSULE BY M OUT EVERY MORNING for 90 Active Amoxicillin-Pot Clavulanate 875-125 MG 1 tablet Orally every 12 hrs for 10 days 09/12/2023 Not-Taking Doxycycline Hyclate 100 MG 1 capsule Orally twice a day for 1 days 10/08/2024 Not-Taking Immunizations Vaccine Route Administration Date Status Comme nts Flu Vaccine IM Intramuscular 06/21/2017 Administered pt wa s given the vaccine at [facility]. Flu Vaccine IM Intramuscular 04/28/2018 Administered pt wa s given the vaccine at [facility] in [place]. TDaP IM Intramuscular 04/28/2018 Administered pt was given the vaccine at [facility] in [facility]. PPSV23 (Pnemovax) IM Intramuscular 04/28/2018 Administered pt was given the vaccine at the [facility] in [place]. Tetanus Unknown 04/28/2018 Administered Fluarix Quadrivalent IM Intramuscular 04/06/2019 Administe red pt was given the vaccine at [facility] in [place]. Fluarix Quadrivalent Unknown 03/30/2020 Administered [facility] Fluarix Quadrivalent Unknown 04/27/2021 Administered [facility] SARS-COV-2 Pfizer Unknown 09/21/2020 Administered SARS-COV-2 Pfizer Unknown 08/31/2020 Administered Fluarix Quadrivalent Unknown 04/27/2021 Administered SARS-COV-2 Pfizer Unknown 06/26/2021 Administered [facility] Fluarix Quadrivalent Unknown 04/09/2022 Administered SARS-COV-2 Pfizer Unknown 04/09/2022 Administered [facility] Fluarix Quadrivalent Unknown 04/09/2022 Administered SARS-COV-2 Pfizer Unknown 11/12/2022 Administered [facility] Fluarix Quadrivalent Unknown 04/13/2023 [facility]ered [facility] SARS-COV-2 Pfizer Unknown 04/13/2023 Administered [facility] Shingrix Unknown 10/14/2023 Administered [facility] Social History Tobacco Use: Social History Observation Description Date Details (start date - stop date) Never Smoker NA - NA Tobacco Use/Smoking Question Answer Notes Patient is a nonsmoker Additional Findings: Tobacco Non-User Cu rrent non-smoker, currently using no form of tobacco Alcohol Screen Question Answer Notes Did you have a drink contain ing alcohol in the past year? Yes How often did you have a dri nk containing alcohol in the past year? Monthly or less (1 point) How many drinks did you have on a typical day when you were drinking in the past year? 1 or 2 drinks (0 point) How often did you have 6 or more drinks on one occasion in the past year? Never (0 point) Points 1 Interpretation Negative Problems Problem Type SNOMED Code ICD Code Onset Dates Problem Status W/U Status Risk Notes Problem 14120085 Essential hypert ension (I10) Active confirmed Problem Psoriasis (2026819) Psoriasis (L40.9) Active confirmed Problem 90175898 Dysthymia (F34.1) Active confirmed Problem 412820751 Recurrent sinus infections (J32.9) Active confirmed Problem 20267145 Hypercholesterol emia (E78.00) Active confirmed Problem 635414438 Hyperplastic col onic polyp, unspecified part of colon (K63.5) Active confirmed Problem 025594977 Temporary low pl atelet count (D69.6) Active confirmed Vital Signs Blood pressure diastolic 70 mm Hg 12/10/2024 gaston ght is down 5 pounds since 10-08-24 Height 65.25 in 12/10/2024 weight is down 5 pounds since 10-08-24 Blood pressure systolic 124 mm Hg 12/10/2024 weig ht is down 5 pounds since 10-08-24 Weight 154 lbs 12/10/2024 weight is down 5 pounds since 10-08-24 BMI 25.43 kg/m2 12/10/2024 weight is down 5 pounds since 10-08-24 Encounters Encounter Location Date Provider Diagnosis Mau Fong MD [address] [place] [address] [place] [id number] 12/10/2024 Mau Bombardier Tick bite W57.XXXA ; Essential hypertension I10 and Hypercholesterolemia E78.00 Mau Fong MD [address] [place] [id number] 06/11/2024 Mau Johner Hypercholesterolemia E78.00 ; Annual physical exam Z00.00 ; Essential hypertension I10 ; Rib pain on left side R07.81 and Depression screening Z13.31 Mau Fong MD [address] [place] [id number] 10/08/2024 Mau Lopezer Insect bite (nonveno mous) of left shoulder, initial encounter S40.262A Mau Fong MD [address] [place] [id number] 06/21/2024 Mau Fong MD [address] [place] [id number] 12/06/2024 Mau Saloardier Insect bite (nonveno mous) of left shoulder, initial encounter S40.262A Assessments Encounter Date Diagnosis (ICD Code) Assessment Notes Treatment Notes Treatment Clinical Notes Section Notes 12/10/2024 Tick bite (ICD-10 - W57.XXXA) pending diagnostic labs 12/10/2024 Essential hypertensi on (ICD-10 - I10) stable, will cntinue to monitor 06/11/2024 Hypercholesterolemia (ICD-10 - E78.00) doing well on meds, will continue current regiment 06/11/2024 Annual physical exam (ICD-10 - Z00.00) labs reviewed and discused with patient 10/08/2024 Insect bite (nonvenomous) of left shoulder, initial encounter (ICD-10 - S40.262A) patient verbalized understanding of medication and directions for use 12/06/2024 Insect bite (nonvenomous) of left shoulder, initial encounter (ICD-10 - S40.262A) 12/10/2024 Hypercholesterolemia (ICD-10 - E78.00) stable, will continue current regiment 06/11/2024 Essential hypertensi on (ICD-10 - I10) well controlled, will continue current regiment 06/11/2024 Rib pain on left josé e (ICD-10 - R07.81) pending diagnostic testing 06/11/2024 Depression screening (ICD-10 - Z13.31) negative screen Plan Of Treatment Pending Test Test Name Order Date BONE DENSITY DEXA 05/25/2021 Tick-borne Disease Molecular 12/10/2024 XR ribs LT 2V 06/11/2024 Next Appt Details Provider Name:Mau Benjamin ier, 06/10/2025 07:45:00 AM, [address], [address], [place], [place], [phone], Provider Name:Mau Benjamin ier, 06/17/2025 01:00:00 PM, [address], [address], [place], [place], [phone], Insurance Providers Payer Name Payer Address Payer Phone Subscriber Number Group Number Insured Name Patient Relationship to Insured Coverage Start Date Coverage End Date [employer] [address] [place], [place] [phone] [id number] GARRISON TERRY Self - patient is the insured Medical (General) History Medical History History ICD Code colonoscopy done 03/08/[address] Lokesh Licona in [place] - repeat 10 years Colonoscopy 09-22-21 Dr Chuckie Skelton [facility], repeat 5yrs 2026
[2024-12-12 20:03] LABS: A. Phagocytphilium DNA,RT-PCR NOT DETECTED (NOT DETECTED); Babesia Microti DNA, RT-PCR NOT DETECTED (NOT DETECTED); Borrelia Miyamotoi,DNA RT-PCR NOT DETECTED (NOT DETECTED); E.Chaffeensis DNA RT-PCR NOT DETECTED (NOT DETECTED); Lyme(Borrelia ssp)DNA RT-PCR NOT DETECTED (NOT DETECTED)
== END 2024-12-10 13:09 | disposition home or self-care (01) ==
LOC: HO.LNP 13:08
PROVIDERS: Visit Provider Internal Medicine
DX: T14.8XXA Other injury of unspecified body region, initial encounter (principal); W57.XXXA Bitten or stung by nonvenomous insect and other nonvenomous arthropods, initial encounter
CPT/HCPCS: 87468; 87469; 87478; 87484; 87798

== ENCOUNTER 2025-03-12 19:49 | Emergency (ER) | payer BC, SELFPAY ==
--- OUTSIDE RECORDS SUMMARY | 2024-12-03 03:45 | XMS_ITS ---
Author Organization Mau Fong MD Address [address] [place], [place] [phone] Care Team Providers Care Principal Electrical Engineer Name Role Phone Mau Fong Primary Care Provider [phone] REASON FOR VISIT fasting lipids Encounters Encounter Location Date Provider Diagnosis Mau Fong MD [address] [place] [phone] 12/03/2024 Mau Fong Hypercholesterolemia E78.00 Assessments Encounter Date Diagnosis (ICD Code) Assessment Notes Treatment Notes Treatment Clinical Notes Section Notes 12/03/2024 Hypercholesterolemia (ICD-10 - E78.00) Plan Of Treatment Pending Test Test Name Order Date Liver Panel 12/03/2024 Lipid Panel with Reflex 12/03/2024 Next Appt Details Provider Name:Mau Benjamin ier, 06/10/2025 07:45:00 AM, [address], Suite [facility], [place], [place], [phone], Provider Name:Mau Tenorio Saloluis eduardo rivera, 06/17/2025 01:00:00 PM, [address] [facility], Suite [facility], [place], [place], [phone], Progress Notes * GARRISON TERRYDOBeverly:1960 (64 yo F)Acc No.[id number]:12/03/2024 Progress Note Patient: GARRISON DOW Provider: Reyna Fong MD :1960 A ge:64 Y S ex:Female Date:12/03/2024 Address:[address] [place], [place] [phone] Subjective: * Chief Complaints: * 1 . Fasting lipids. * Medical History: Objective: * Vitals: Assessment: * Assessment: 1. H ypercholesterolemia - E78.00 (Primary) Plan: * Treatment: * * The named appointment provid er may or may not be the originator of this progress note, and it is not deemed complete until electronically signed by the appointment provider. Sign off status: Pending * Provider: Reyna Fong MD Date: 0 12/03/2024 Generated for Ally brooks/Reed/Chasityitting on: 0 03/12/2025 08:21 PM EDT
--- OUTSIDE RECORDS SUMMARY | 2024-12-06 04:36 | XMS_ITS ---
Author Organization Mau Fong MD Address [address] [place], [place] [phone] Care Team Providers Care Interactive Designer Name Role Phone Mau Fong Primary Care Provider REASON FOR VISIT tick bite Medications Medication SIG (Take, Route, Frequency, Duration) Notes Start Date End Date Status Doxycycline Hyclate 100 MG 1 capsule Ora lly twice a day for 1 days 10/08/2024 Active Encounters Encounter Location Date Provider Diagnosis Mau Fong MD [address] [place], [place] [phone] 12/06/2024 Mau Fong Insect bite (nonvenomous) of [...] 07:45:00 AM, [address], [address], [place], [place], [phone], Provider Name:Mau Leongard ier, 06/17/2025 01:00:00 PM, [address], [address], [place], [place], [phone], Progress Notes * HARRISONGARRISONDOB:1960 (64 yo F)Acc No.[id number]:12/06/2024 Patient: GARRISON DOW :1960 A ge:64 Y S ex:Female Address:[address] [place] [address], [address] * Refills Continue Doxycycline Hyclate Capsule, 100 MG, Orally, 2 Capsule, 1 capsule, twice a day, 1 days, Refills=5 * true * Date: Generated for Ally brooks/Reed/Willasmitting on: 0 03/12/2025 08:22 PM EDT
--- OUTSIDE RECORDS SUMMARY | 2024-12-10 07:00 | XMS_ITS ---
Author Organization Mau Fong MD Address [address] [place], [place] [phone] Care Team Providers Care Drone Pilot Name Role Phone Mau Fong Primary Care Provider Allergies No Known Allergies Results Component Value Reference Range Notes Tick-borne Disease Molecular Reviewed date:12/13/2024 08:31:56 AM Interpretation: Performing Lab:[facility], [address] [place] [phone] Notes/Report: Babesia Microti DNA, RT-PCR NOT DETECTED NOT DETECTED This test was developed and its analytical performance characteristics have been determined by [employer]. It has not been cleared or approved by the FDA. This assay has been validated pursuant to the CLIA regulations and is used for clinical purposes. THIS TEST WAS PERFORMED AT: [facility] [address] [place] [phone] VINNY FERRERA MD E.Chaffeensis DNA RT-PCR NOT DETECTED NOT DETECTED This test was developed and its analytical performance characteristics have been determined by [employer]. It has not been cleared or approved by the FDA. This assay has been validated pursuant to the CLIA regulations and is used for clinical purposes. THIS TEST WAS PERFORMED AT: [facility] [address] [place] [phone] VINNY FERRERA MD A. Phagocytphilium DNA,RT-PCR NOT DETECTED NOT DETECTE D This test was developed and its analytical performance characteristics have been determined by [employer]. It has not been cleared or approved by the FDA. This assay has been validated pursuant to the CLIA regulations and is used for clinical purposes. Lyme(Borrelia ssp)DNA RT-PCR NOT DETECTED NOT DETECTED This test was developed and its analytical performance characteristics have been determined by [employer]. It has not been cleared or approved by the FDA. This assay has been validated pursuant to the CLIA regulations and is used for clinical purposes. For additional information, please refer to https://education.[employer]/faq/vlq520 (This link is being provided for informational/ educational purposes only.) THIS TEST WAS PERFORMED AT: [facility] [address] [place] [phone] VINNY FERRERA MD Borrelia Miyamotoi,DNA RT-PCR NOT DETECTED NOT DETECTE D This test was developed and its analytical performance characteristics have been determined by [employer]. It has not been cleared or approved by the FDA. This assay has been validated pursuant to the CLIA regulations and is used for clinical purposes. THIS TEST WAS PERFORMED AT: [facility] [address] [place] [phone] VINNY FERRERA MD Tick Mol. Panel Cmmt [...] be indicated. THIS TEST WAS PERFORMED AT: [facility] [address] [place] [phone] VINNY FERRERA MD REASON FOR VISIT 6 [...] kg/m2 12/10/2024 weight is down 5 pounds [facility] 10-08-24 Encounters Encounter Location Date Provider Diagnosis Mau Fong MD [address] [place] [address] [place] [phone] 12/10/2024 Mau Fong Essential hypertensi on I10 [...] Details Provider Name:Mau rivera, 06/10/2025 07:45:00 AM, [address] [place] [address], Suite [facility], [place], [place], [phone], Provider Name:Mau rivera, 06/17/2025 01:00:00 PM, [address] [place] [address], [address], [place], [place], [phone], Progress Notes * GARRISON TERRYDOB:1960 (64 yo F)Acc No.[id number]:12/10/2024 Progress Notes Patient: GARRISON DOW Provider: Reyna Fong MD :1960 A ge:64 Y S ex:Female Date:12/10/2024 Address:[address] [place], [place] [phone] Subjective: * Chief Complaints: * 6 month [...] 12/10/2024 Generated for Ally brooks/Reed/Chasityitting on: 0 03/12/2025 08:22 PM EDT History and Physical Notes * [...]
--- NOTE | 2025-03-12 | ECG_ITS ---
Test Reason : DIZZINESS Blood Pressure : */* mmHG Vent. Rate : 74 BPM Atrial Rate : 74 BPM P-R Int : 138 ms QRS Dur : 94 ms QT Int : 422 ms P-R-T Axes : 58 -4 28 degrees QTcB Int : 468 ms Normal sinus rhythm Nonspecific ST and T wave abnormality Borderline ECG No previous ECGs available Referred By: Generic ED Physician Electronically Signed By: MOISE TAYLOR
--- NOTE | ~2025-03-12 | CT_ITS ---
CLINICAL HISTORY: Acute onset Dizziness CT Head without contrast. CT angiography head and neck with contrast. 3D Postprocessing. Comparison: None provided Findings: HEAD CT: No intra-axial mass, midline shift, hydrocephalus, or acute hemorrhage. No significant atrophy-like change or white matter disease. There is no sinus or mastoid fluid. The orbits are unremarkable. There is no acute fracture. HEAD AND NECK CTA: Aortic arch and cervical great vessels are patent. Atherosclerosis at the origin of the right internal carotid artery, just beyond the carotid bulb. Intracranial arteries are patent. No aneurysm, dissection, or occlusion. No abnormal intracranial enhancement. The visualized thyroid gland is unremarkable. No cervical mass or fluid collection. Right apical blebs. Lungs are otherwise clear. No acute fracture. IMPRESSION: 1. Unremarkable head CT. 2. Patent head and neck CTA. This document has been electronically signed by: Osmany Garcia MD on 03/13/2025 00:23:04
[2025-03-12 19:53] VITALS: BP 187/87; PULSE 79; RESP 15; TEMP 36.6; O2SAT 99; BMI 26.3
[2025-03-12 20:10] VITALS: BP 187/85; PULSE 72; RESP 11; O2SAT 99
[2025-03-12 20:21] LABS: MANUAL DIFF FLAG NO
--- OUTSIDE RECORDS SUMMARY | 2025-03-12 20:22 | XMS_ITS | Encounter Summary ---
Author Organization [facility] Address [address] [facility] [address] [place] [address] Phone Care Team Providers Care Net Software Architect Name Role Phone Mau Fong MD Primary Care Provider Mau Fong MD Unavailable [phone] Encounter Details Date Type Department Care Team (Late st Contact Info) Description 09/22/2021 Procedure Pass [facility] Endoscopy Admitting Dept Virtual Department [address] [place] [address] Social History Tobacco Use Types Packs/Day Years Used Date Smoking Tobacco: Former Cigarettes Q uit: 1999 Smokeless Tobacco: Never Alcohol Use Standard Drinks/Week Comments Yes 0 (1 standard drink = 0.6 oz pur e alcohol) once a month Comments No Sex and Gender Information Value Date Recorded Sex Assigned at Female 04/29/2024 8:01 AM EDT Legal Sex Female 10:34 PM EDT Gender Identity Female 04/29/2024 8:01 AM EDT Sexual Orientation Not on file 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 Not on file Not on file N ot on file documented as of this encounter Plan of Treatment Not on file documented as of this encounter Visit Diagnoses Not on filedocumented in this encounter Care Teams Net Software Architect Relationship Specialty Start Date End Date Mau Fong MD [address] [place] [address] [place] [address] PCP - General Internal Medicine 08/18/20 Mau Fong MD [address] [place] [address] [place] [address] Internal Medicine 08/18/20 documented as of this encounter Additional Source Comments The information contained in this document represents components of the legal health record. It is not the complete legal health record.[facility]
--- OUTSIDE RECORDS SUMMARY | 2025-03-12 20:22 | XMS_ITS | Clinical Summary ---
Author Organization [facility] Address [address] [facility] [address] [place] [phone] Phone Care Team Providers Care Refinery Technician Name Role Phone Mau Fogn MD Primary Care Provider Mau Fong MD Unavailable [phone] Allergies No known active allergies Medications FLUoxetine (PROZAC) 10 MG capsule Take 1 capsule by mouth every morning. Active Medication-Free Text multivitamin Active atorvastatin (LIPITOR) 20 MG tablet Take 20 mg by mouth daily. 2 Active cholecalciferol , vitamin D3, 12.5 mcg/5 mL (500 unit/5 mL) Liqd Take by mouth. Activ e calcium kfi-fhlrshted-M 3-zinc 84 mg-24 mg- 10 mcg/5 mL Liqd Take by mouth. Activ e Active Problems Problem Noted Date Diagnosed Date Family history of breast cancer 04/16/2019 Overview (04/16/2019): Sister breast cancer age 56 Maternal grandmother breast cancer age 83 Mother endometrial cancer age 46 Assessment & Plan (08/15/2022 11:10 AM EST): We reviewed option of genetic consult. She declines at this time. She will continue with yearly mammograms; yearly clinical exams also encouraged. Assessment & Plan (08/06/2020 8:13 AM EST): Offered genetic referral today; accepted Assessment & Plan (04/16/2019 12:35 PM EDT): Discussed genetic testing option with the patient; she declines for now, but can be offered again in the future Family History Medical History Relation Comments Breast cancer Maternal Grandmother Uterine cancer Mother Breast cancer Sister Other Unspecified Parkinson's Relation Status Comments Father Maternal Grandmother Mother Alive Sister breast cancer ag e 44 Unspecified Social History Tobacco Use Types Packs/Day Years Used Date Smoking Tobacco: Former Cigarettes Q uit: 2000 Smokeless Tobacco: Never Tobacco Cessation:Counseling Given: Not Answered Alcohol Use Standard Drinks/Week Comments Yes 0 (1 standard drink = 0.6 oz pur e alcohol) once a month Education Answer Date Recorded Are you interested in more education? Not on zak e 11/11/2022 Are you concerned about learning? Not on file 11/11/2022 No 11/11/2022 No 11/11/2022 Digital Access Answer Date Recorded No 12/12/2022 No 12/12/2022 Reliable internet access at home? Not on file 12/12/2022 Device with a working camera? 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 Not on file Not on file N ot on file Last Filed Vital Signs Vital Sign Reading Time Taken Comments Blood Pressure 128/78 05/22/2024 8:40 AM EST Pulse 66 09/22/2021 9:36 AM EST Temperature 36.3 C (97.3 F) 09/22/2021 10:45 AM EST Respiratory Rate 18 09/22/2021 11:00 AM EST Oxygen Saturation 96% 09/22/2021 11:00 AM EST Inhaled Oxygen Concentration - - Weight 75.3 kg (166 lb) 05/22/2024 8:40 AM EST Height 166.4 cm (5' 5.5 ) 05/22/2024 8:40 AM EST Body Mass Index 27.2 05/22/2024 8:40 AM EST Plan of Treatment Health Maintenance Due Date Last Done Comments DEPRESSION SCREENING 1971 HEPATITIS C SCREENING 1977 HIV ONE-TIME SCREENING (18-65 YEARS) 1977 COLOGUARD 2004 FIT TEST 2004 FOBT 2004 SIGMOIDOSCOPY 2004 VIRTUAL COLONOSCOPY 2004 PNEUMOCOCCAL VACCINES (50+ years) (2 of 2 - PCV) 04/28/2019 04/28/2018 MAMMOGRAM 05/16/2021 05/16/2019, 04/18, 08/17/2016 OSTEOPOROSIS SCREENING INITIAL (ONE-TIME) 2024 COVID-19 VACCINE ( season) 2024 03/27/2024, 04/13/2023, 04/13/2023, Additional history exists BLOOD PRESSURE 11/19/2024 05/22/2024 SMOKING Hx and SMOKELESS TOBACCO SCREENING 05/22/2025 05/22/2024 SCREENING FOR DIABETES 06/04/2027 06/04/2024 Adult Td,Tdap Booster 04/28/2028 04/28/2018 PAP SMEAR 05/22/2029 05/22/2024, 10/0 07/2018, 04/16/2019 LIPID PANEL 12/03/2029 12/03/2024, 05/17, 11/30/2023, Additional history exists COLONOSCOPY 09/23/2031 09/22/2021 COLORECTAL CANCER SCREENING 09/23/2031 RSV VACCINE Completed 07/21/2023 ZOSTER VACCINES Completed 10/14/2023, 07/21/2023 HEPATITIS A VACCINES Aged Out No long er eligible based on patient's age to complete this topic HIB VACCINES Aged Out No longer eligi ble based on patient's age to complete this topic MENINGOCOCCAL VACCINES (ACWY) Aged Out No longer eligible based on patient's age to complete this topic MENINGOCOCCAL VACCINES (B) Aged Out N o longer eligible based on patient's age to complete this topic Medical Devices Implanted Type Area Header Operator Device Identifier Shelf Expiration Date Model / Serial / Lot Right Arm Procedures Procedure Name Priority Date/Time Associated Diagnosis Comments LIPID PANEL Routine 12/03/2024 7:56 AM EDT Hypercholesterolemia PAP TEST Routine 05/22/2024 12:00 AM EST ENDOSCOPY, COLON 09/22/2021 10:1 8 AM EST HM MAMMOGRAPHY Routine 05/16/2019 from Last 3 Months or Most Recently Relevant to Health Maintenance Results * (ABNORMAL) Lipid panel (12/03/2024 7:56 AM EDT) HDL 61 mg/dL [facility] Comment: Interpretation <40 mg/dL: Low HDL cholesterol (major risk factor for CHD) Greater than or equal to 60 mg/dL: High HDL cholesterol ( negative risk factor for CHD) HDL - cholesterol is affected by a number of factors, e.g. smoking, excerise, hormones, sex and age. CHOLESTEROL 145 0 - 240 mg/dL [facility] TRIGLYCERIDES 126 30 - 160 mg/dL [facility] LDL 59 50 - 129 mg/dL [facility] Comment: LDL levels in terms of risk for coronary heart disease: <100 mg/dL: Optimal 100-129 mg/dL: Near or above optimal 130-159 mg/dL: Borderline high 160-189 mg/dL: High >190 mg/dL: Very High CARDIAC RISK RATIO 2.4(L) 3.3 - 4.4 [facility] Blood 12/03/2024 7:56 AM EDT 12/03/2024 7:58 AM EDT us Mau Fong MD LAB BLOOD ORDERABLES Fi nal Result [address] [address] * Pap Test (05/22/2024 12:00 AM EST) 05/22/2024 05/23/2024 10: 11 AM EST Narrative SEE NARRATIVE - 05/28/2024 3:29 PM EST [address] [address] Unit Leader: Chuckie Meza MD SPECIAL EDUCATION CASE MANAGER Cytology Report FINAL DIAGNOSIS A. PAP SMEAR (THIN PREP) CE: SPECIMEN ADEQUACY: Satisfactory for evaluation; transformation zone present. INTERPRETATION: NEGATIVE FOR INTRAEPITHELIAL LESION OR MALIGNANCY. Atrophy. This specimen was analyzed by the automated ThinPrep Imaging System ([employer] and the selected childress were reviewed by a regional operations manager. Electronically Signed Out By: DANNA Trinidad(ASCP) The Pap test is a screening test primarily for squamous cancers and precursors and has associated false-negative and false-positive results. New technologies such as liquid-based preparations may decrease but will not eliminate all false-negative results. Regular sampling and follow-up of unexplained clinical signs and symptoms are recommended to minimize false negative results. PROCEDURES/ADDENDA HPV Testing (Requested) Ordered Date: 05/23/2024 A. PAP SMEAR (THIN PREP) CE: High-risk HPV Panel w/ extended genotyping NEG HPV 16-NEG HPV 18-NEG HPV 45-NEG HPV 33/58-NEG HPV 31-NEG HPV 56/59/66-NEG HPV 51-NEG HPV 52-NEG HPV 35/39/68-NEG Performed by real-time polymerase chain reaction (PCR) at [address] using the FDA-approved BD Onclarity9 HPV Assay with extended genotyping. Uses of the assay in scenarios other than those approved by the FDA should be considered off-label use. The accuracy and precision of this test for all other off-label specimen sources has been verified in the Cytopathology Laboratory of the [facility] and has not been cleared or approved by the U.S. Food and Drug Administration. Clinical correlation is advised. The assay assesses the E6/E7 DNA target and utilizes human beta globin as an internal control. Cytology and HPV testing are screening assays and should not be used as the sole means of detecting cancer. False-positives and false-negatives can occur. CLINICAL HISTORY Date of Last Menstrual Period: Not Provided Menstrual History: Post Menopausal Other Clinical Conditions: Screening Pap SPECIMEN SOURCE A: PAP SMEAR (THIN PREP) CE Patient Name: ELEANOR TERRY : 1960 (Age: 63) Sex: F Institution: [facility] Location: [facility] Date of Collection: 05/22/2024 Date of Reported: 05/28/2024 15:29 Results to: Nikkie Curtis MD us Nikkie Curtis MD CYTOLOGY ORDERABLES Final Result SEE NARRATIVE * ENDOSCOPY, COLON (09/22/2021 10:18 AM EST) Narrative Transcriptions Js Vargas MD - 09/22/2021 10:18 AM EST Patient Name: Eleanor Terry Attending MD:: JS VARGAS MD Procedure Date: 09/22/2021 10:18 AM Date of : 1960 Age: 61 Admit Type: Outpatient Gender: Female Room: [place] [address] Referring MD: Mau Fong MD Exam Type: Colonoscopy Indications: Screening for colorectal malignant neoplasm, Last colonoscopy: February 2011 Medications: Propofol per Anesthesia Procedure: Informed consent was obtained from the patientafter discussion of the indications, limitations, alternatives, benefits, and risks of the procedure. Risks specifically discussed include but are not limited to medication reactions, missed lesions, bleeding, perforation, or the need for emergent surgery. Throughout the procedure, the patient's blood pressure, pulse, end-tidal CO2, and oxygensaturations were monitored continuously. The Olympus adult variable colonoscope [id number] #6 was introduced through the anus and advanced to the terminal ileum, with identification of theappendiceal orifice and IC valve. The colonoscopy was performed without difficulty. The patient tolerated the procedure well. The quality of the bowelpreparation was good. The bowel preparation used was Miralax in Gatoraide, 4 L. via split dose instruction. Complications: No immediate complications. Estimated blood loss:None. Findings: The perianal and digital rectal examinations were normal. Pertinent negatives include no palpablerectal lesions. Internal hemorrhoids were found duringretroflexion. The hemorrhoids were small. Many small-mouthed diverticula were found in the sigmoid colon. A small polyp was found in the cecum. The polyp was sessile. The polyp was removed with a cold snare. Resection and retrieval were complete. The terminal ileum appeared normal. Retroflexion in the right colon was performed. Impression: - Internal hemorrhoids. - Diverticulosis in the sigmoid colon. - One small polyp in the cecum, removed with a cold snare. Resected and retrieved. - The examined portion of the ileum was normal. Recommendation: - If the pathology report reveals adenomatoustissue, then repeat the colonoscopy for surveillance in 5 years. - If the pathology report reveals no adenomatous tissue, then repeat the colonoscopy for screening purposes in 10 years. JS VARGAS MD 09/22/2021 10:47:30 AM This report has been signed electronically. Number of Addenda: 0 Note Initiated On: 09/22/2021 10:18 AM Procedure Code(s): --- Professional --- 05545, Colonoscopy, flexible; with removal of tumor(s), polyp(s), or other lesion(s) by snare technique --- Technical --- 93910, Colonoscopy, flexible; with removal of tumor(s), polyp(s), or other lesion(s) by snare technique Diagnosis Code(s): --- Professional --- Z12.11, Encounter for screening for malignantneoplasm of colon K64.8, Other hemorrhoids K63.5, Polyp of colon K57.30, Diverticulosis of large intestine without perforation or abscess without bleeding --- Technical --- Z12.11, Encounter for screening for malignantneoplasm of colon K64.8, Other hemorrhoids K63.5, Polyp of colon K57.30, Diverticulosis of large intestine without perforation or abscess without bleeding CPT copyright 2020 [employer]. All rights reserved. The codes documented in this report are preliminary and upon irrigation engineer reviewmay be revised to meet current compliance requirements. Procedure Date: 09/22/2021 10:18:[address] [place] [id number] us Mau Fong MD GI PROCEDURE ORDERABLES Final Result * MAMMOGRAPHY FOR RESULT ENTRY ONLY (05/16/2019) us Jazmyn Thornton MD HEALTH MAINTENANCE Final R esult from Last 3 Months or Most Recently Relevant to Health Maintenance Insurance [facility] OUT OF [facility] PPO [facility] OUT [facility] PPO BLUE CROSS OUT OF STATE PPO BLUE CROSS OUT OF [facility] PPO BLUE CROSS OUT OF [facility] PPO BLUE CROSS OUT OF STATE PPO BLUE [place] OUT OF STATE PPO BLUE [place] OUT OF STATE PPO BLUE [place] OUT OF STATE PPO BLUE [place] OUT OF [facility] PPO BLUE CROSS OUT OF [facility] PPO BLUE CROSS OUT OF STATE PPO BLUE [place] OUT OF STATE PPO BLUE [place] OUT OF STATE PPO BLUE [place] OUT OF STATE PPO BLUE [place] OUT OF STATE PPO BLUE [place]OSS OUT OF STATE PPO BLUE CROSS OUT OF STATE PPO Care Teams Refinery Technician Relationship Specialty Start Date End Date Mau Fong MD [address] [place] [address] Dr ALEXANDRA [address] [place] [id number] PCP - General Internal Medicine 08/18/20 Mau Fong MD [address] [place] [address] Dr ALEXANDRA [address] [place] [id number] Internal Medicine 08/18/20 Additional Source Comments The information contained in this document represents components of the legal health record. It is not the complete legal health record.[facility]
--- OUTSIDE RECORDS SUMMARY | 2025-03-12 20:22 | XMS_ITS | Patient Health Record ---
Author Organization Mau Fong MD Address [address] [place], [place] [id number] Care Team Providers Care Hospitalist Physician Name Role Phone Mau Fong Primary Care Provider Allergies No Known Allergies Results Component Value Reference Range Notes Tick-borne Disease Molecular Reviewed date:12/13/2024 08:31:56 AM Interpretation: Performing Lab:[facility], [address] [place] [phone] Notes/Report: Babesia Microti DNA, RT-PCR NOT DETECTED NOT DETECTED This test was developed and its analytical performance characteristics have been determined by [employer]. It has not been cleared or approved by the FDA. This assay has been validated pursuant to the CLIA regulations and is used for clinical purposes. THIS TEST WAS PERFORMED AT: [facility] [address] [place] [phone] VINNY FERRERA MD E.Chaffeensis DNA RT-PCR NOT DETECTED NOT DETECTED This test was developed and its analytical performance characteristics have been determined by [employer]. It has not been cleared or approved by the FDA. This assay has been validated pursuant to the CLIA regulations and is used for clinical purposes. THIS TEST WAS PERFORMED AT: [facility] [address] [place] [phone] VINNY FERRERA MD A. Phagocytphilium DNA,RT-PCR NOT DETECTED NOT DETECTED This test was developed and its analytical performance characteristics have been determined by [employer]. It has not been cleared or approved by the FDA. This assay has been validated pursuant to the CLIA regulations and is used for clinical purposes. Lyme(Borrelia ssp)DNA RT-PCR NOT DETECTED NOT DETECTED This test was developed and its analytical performance characteristics have been determined by [employer]. It has not been cleared or approved by the FDA. This assay has been validated pursuant to the CLIA regulations and is used for clinical purposes. For additional information, please refer to https://education.[facility]/f aq/agt992 (This link is being provided for informational/ educational purposes only.) THIS TEST WAS PERFORMED AT: [facility] [address] [place] [phone] VINNY FERRERA MD Borrelia Miyamotoi,DNA RT-PCR NOT DETECTED NOT DETECTED This test was developed and its analytical performance characteristics have been determined by [employer]. It has not been cleared or approved by the FDA. This assay has been validated pursuant to the CLIA regulations and is used for clinical purposes. THIS TEST WAS PERFORMED AT: [facility] [address] [place] [phone] VINNY FERRERA MD Tick Mol. Panel Cmmt [...] be indicated. THIS TEST WAS PERFORMED AT: [facility] [address] [place] [phone] VINNY FERRERA MD MM tomosynthesis screening B I Reviewed date:05/02/2024 09:34:57 PM Interpretation: Performing Lab: Notes/Report: [facility] [address] [place] [address] Mammography Report Signed Patient: Garrison Terry MR#: [id number] 2 : 1960 Acct:[id number] Age/Sex: 63 / F ADM Date: 04/18/24 Loc: HO.MAMMO Attending Dr: Mau Fong MD Ordering Physician: Mau Fong MD Results: 1Ne gative Date of Service: 04/18/24 Follow Up: 1 Year From Orig inal Mammogram Procedure(s): MM tomosynthesis screening BI Accession Number(s): [id number] cc: Mau Fogn MD EXAMINATION: MM SCREENING DIGITAL BREAST TOMOSYNTHESIS, [...] Alexia Leavitt DO 04/29/2024 02:15 PM EDT Dictated By: Alexia Leavitt DO Signed By: <Electronically signed by Alexia Leavitt DO in OV> 04/29/24 1415 DD/ 0845 TD/TT: 04/18/24 0855 Metal Furniture Assembler: [facility] [address] [place] [address] Mammography Report Signed Patient: Tenzin Terry ra MR#: [id number] 2 : 1960 Acct:[id number] Age/Sex: 63 / F ADM Date: 04/18/24 Loc: HOKatherineMAMMO Attending Dr: Mau Fong MD Ordering Physician: aMu Fong MD Results: 1Ne gative Date of Service: 04/18/24 Follow Up: 1 Year From Orig inal Mammogram Procedure(s): MM tomosynthesis screening BI Accession Number(s): [id number] cc: Mau Fong MD EXAMINATION: MM SCREENING [...] mammography screening. 1 year F/U This examination yara uld not preclude the clinical evaluation of a suspicious palpable abnormality. This patient's information was entered into a reminder system with a target due date for their next mammogram. Electronically eric d by: Alexia Leavitt DO 04/29/2024 02:15 PM EDT Dictated By: Alexia Leavitt DO Signed By: <Electronically signed by Alexia Leavitt DO in OV> 04/29/24 1415 DD/ 0845 TD/TT: 04/18/24 0855 Metal Furniture Assembler: XR ribs LT min 3V w CXR1V Reviewed date:06/21/2024 01:45:57 PM Interpretation: Performing Lab: Notes/Report: [address] [address] XRay Report Signed Patient: Garrison Terry MR#: [id number] 2 : 1960 Acct:[id number] Age/Sex: 63 / F ADM Date: 06/21/24 Loc: HO.TAMMY Attending Dr: Mau Fong MD Ordering Physician: Mau Fong MD Date of Service: 06/21/24 Procedure(s): XR ribs LT min 3V w CXR1V Accession Number(s): [id number] cc: Mau Fong MD EXAMINATION: XR RIBS, [...] signed by Denny Winters MD in OV> 06/21/24 1113 DD/ 2 TD/TT: 06/21/24 0841 Metal Furniture Assembler: [place] [address] XRay Report Signed Patient: Tenzin Terry ra MR#: [id number] 2 : 1960 Acct:[id number] Age/Sex: 63 / F ADM Date: 06/21/24 Loc: HO.XRAY Attending Dr: Mau Fong MD Ordering Physician: Mau Fong MD Date of Service: 06/21/24 Procedure(s): XR rib s LT min 3V w CXR1V Accession Number(s): [id number] cc: Mau Fong MD EXAMINATION: XR RIBS, [...] signed by Denny Winters MD in OV> 06/21/24 1113 DD/ 0823 TD/TT: 06/21/24 0841 Metal Furniture Assembler: Reason For Referral No Information Medications Medication [...] HCl 10 MG TAKE 1 CAPSULE BY OUT EVERY MORNING for 90 Active Amoxicillin-Pot Clavulanate 875-125 MG 1 tablet Orally every 12 hrs for 10 days 09/12/2023 Not-Taking Doxycycline Hyclate 100 MG 1 capsule Orally twice a day for 1 days 10/08/2024 Not-Taking Immunizations Vaccine Route Administration Date Status Comme nts Flu Vaccine IM Intramuscular 06/21/2017 Administered pt wa s given the vaccine at [facility] in [place]. Flu Vaccine IM Intramuscular 04/28/2018 Administered pt wa s given the vaccine at [facility] in [place]. TDaP IM Intramuscular 04/28/2018 Administered pt was given the vaccine at [facility] in [facility]. PPSV23 (Pnemovax) IM Intramuscular 04/28/2018 Administered pt was given the vaccine at the [facility] in [place]. Tetanus Unknown 04/28/2018 Administered Fluarix Quadrivalent IM Intramuscular 04/06/2019 Administe red pt was given the vaccine at [facility] in [place]. Fluarix Quadrivalent Unknown 03/30/2020 [facility]ered [facility] Quadrivalent Unknown 04/13/2023 Administered [facility] SARS-COV-2 Pfizer Unknown 04/13/2023 Administered [facility] Sh[facility]rix Unknown 10/14/2023 Administered [facility] Social History [...] Problem Status W/U Status Risk Notes Problem 70639128 Essential hypert ension (I10) Active confirmed Problem Psoriasis (4198240) Psoriasis (L40.9) Active confirmed Problem 08331242 Dysthymia (F34.1) Active confirmed Problem 882133489 Recurrent sinus infections (J32.9) Active confirmed Problem 80596450 Hypercholesterol emia (E78.00) Active confirmed Problem 585767602 Hyperplastic col onic polyp, unspecified part of colon (K63.5) Active confirmed Problem 174461698 Temporary low pl atelet count (D69.6) Active confirmed Vital Signs Blood pressure diastolic 70 mm Hg 12/10/2024 gaston ght is down 5 pounds since 10-08-24 Height 65.25 in 12/10/2024 weight is down 5 pounds since 10-08-24 Blood pressure systolic 124 mm Hg 12/10/2024 dali ht is down 5 pounds since 10-08-24 Weight 154 lbs 12/10/2024 weight is down 5 pounds since 10-08-24 BMI 25.43 kg/m2 12/10/2024 weight is down 5 pounds since 10-08-24 Encounters Encounter Location Date Provider Diagnosis Mau Fong MD [address] [place] [address] Drive [address] [place] [id number] 06/11/2024 Mau Fong Hypercholesterolemia E78.00 ; Annual physical exam Z00.00 ; Essential hypertension I10 ; Rib pain on left side R07.81 and Depression screening Z13.31 Mau Fong MD [address] [place] [address] Drive [address] [place] [id number] 10/08/2024 Mau Fong Insect bite (nonveno mous) of left shoulder, initial encounter S40.262A Mau Fong MD [address] [place] [id number] 12/10/2024 Mau Fong Essential hypertensi on I10 ; Hypercholesterolemia E78.00 and Tick bite W57.XXXA Mau Fong MD [address] [place] [address] Drive [address] [place] [id number] 06/21/2024 Mau Fong MD [address] [place] [address] Drive [address] [place] [id number] 12/06/2024 Mau Fong Insect bite (nonveno mous) of left shoulder, initial encounter S40.262A Assessments Encounter Date Diagnosis (ICD Code) Assessment Notes Treatment Notes Treatment Clinical Notes Section Notes 06/11/2024 Hypercholesterolemia (ICD-10 - E78.00) doing well on meds, will continue current regiment 06/11/2024 Annual physical exam (ICD-10 - Z00.00) labs reviewed and discused with patient 10/08/2024 Insect bite (nonvenomous) of left shoulder, initial encounter (ICD-10 - S40.262A) patient verbalized understanding of medication and directions for use 12/10/2024 Essential hypertensi on (ICD-10 - I10) stable, will cntinue to monitor 12/10/2024 Hypercholesterolemia (ICD-10 - E78.00) stable, will continue current regiment 12/06/2024 Insect bite (nonvenomous) of left shoulder, initial encounter (ICD-10 - S40.262A) 06/11/2024 Essential hypertensi on (ICD-10 - I10) well controlled, will continue current regiment 12/10/2024 Tick bite (ICD-10 - W57.XXXA) pending diagnostic labs 06/11/2024 Rib pain on left josé e (ICD-10 - R07.81) pending diagnostic testing 06/11/2024 Depression screening (ICD-10 - Z13.31) negative screen Plan Of Treatment Pending Test Test Name Order Date BONE DENSITY DEXA 05/25/2021 XR ribs LT 2V 06/11/2024 Next Appt Details Provider Name:Mau Benjamin ier, 06/10/2025 07:45:00 AM, [address] [place] [address], [address], [phone], Provider Name:Mau Benjamin ier, 06/17/2025 01:00:00 PM, [address] [place] [address], [place] [address], [place], [place], [phone], Insurance Providers Payer Name Payer Address Payer Phone Subscriber Number Group Number Insured Name Patient Relationship to Insured Coverage Start Date Coverage End Date [employer] [address] [place], [place] [phone] [id number] GARRISON TERRY Self - patient is the insured Medical (General) History Medical History History ICD Code colonoscopy done 03/08/[address] Lokesh Licon[place] in [place] - repeat 10 years Colonoscopy 09-22-21 Dr Chuckie Skelton [facility], repeat 5yrs 2026
[2025-03-12 20:23] LABS: Hematocrit 37.6 % (37.0-47.0); Hemoglobin 12.8 g/dl (12.0-16.0); Imm Gran Abs Auto 0.04 X10*3/uL (0.00-0.03); Imm Gran Pct Auto 0.4 % (0.0-0.4); Lymphocytes Absolute Auto 2.6 X10*3/uL (1.2-4.9); Mean Corpuscular HGB Conc 34.0 g/dl (31.0-35.0); Mean Corpuscular Hemoglobin 30.5 pg (27.0-33.0); Mean Corpuscular Volume 89.5 fL (80.0-98.0); NRBC Abs Auto 0.000 X10*3/uL (0.0-0.012); NRBC Pct Auto 0.0 /100WBC (0.0-0.2); Platelet Count 194 X10*3/uL (160-400); Red Blood Count 4.20 X10*6/uL (4.20-5.50); White Blood Count 10.5 X10*3/uL (4.8-10.8)
[2025-03-12 20:37] LABS: Alanine Aminotransferase 10 U/L (0-31); Albumin Level 4.4 g/dL (3.5-5.0); Alkaline Phosphatase 76 U/L (39-117); Anion Gap 15 (12-20); Aspartate Amino Transferase 35 U/L (5-31); Blood Urea Nitrogen 14 mg/dL (9-16); Calcium 8.8 mg/dL (8.4-10.2); Carbon Dioxide 24 mmol/L (22-29); Chloride 102 mmol/L (96-108); Creatinine Clr Calc Pharmacy 83.0; Estimated Glomerular Filt Rate > 60; Lipase 27 U/L (8-78); Potassium 3.5 mmol/L (3.3-5.1); Sodium 137 mmol/L (135-145); Total Protein 7.1 g/dL (6.5-8.0)
--- NOTE | 2025-03-12 20:38 | PC.NURSE ---
pt biba from yoga, a&ox4, respirations even and unlabored. pt reports she had been getting up from a yoga position when she developed sudden onset of dizziness, and leg tremors. pt reports intermittent nausea but denies vomiting. ems placed 18g in left ac. neuros in tact. nsr on tele
[2025-03-12 20:48] LABS: Troponin-I High Sensitivity < 2.7 ng/L (<3.5-17.0)
[2025-03-12 21:53] VITALS: BP 156/91; PULSE 73; RESP 14; TEMP 36.4; O2SAT 97
[2025-03-12 22:26] VITALS: BP 156/91; PULSE 89; RESP 15; O2SAT 95
--- NOTE | 2025-03-12 22:30 | PC.NURSE ---
Pt reports she is no longer feeling dizzy.
--- NOTE | 2025-03-12 22:51 | ED.DIZZY ---
HPI - Dizziness General Chief Complaint: Dizziness Stated Complaint: dizziness Time Seen by Provider: 03/12/25 21:48 Source: patient Mode of arrival: ambulatory Limitations: no limitations History of Present Illness ED Provider: Loy ALVAREZ HPI Narrative: The patient is a 64-year-old female presenting to the ED reporting earlier this evening she completed a yoga class, was feeling well throughout the class, however during the cool down. Patient began experiencing sudden onset dizziness described as a room spinning sensation with the associated nausea but without associated vomiting. The patient denies associated headache, focal neurological deficit, tinnitus, or recent trauma. The patient denies associated chest pain, shortness of breath, abdominal pain, vomiting, diarrhea, urinary symptoms, recent viral illness/URI, or recent sick contacts. The patient denies anticoagulation or similar previous symptoms. The patient reports the yoga classes are not a new activity for her, reports she was feeling well prior to class. The patient reports she stayed well hydrated throughout the day today, however does admit she did not eat as much as she normally would, advises she was kayaking in the past few days and then did yoga today, however only ate a piece of toast and a small piece of chicken prior to yoga. The patient reports symptoms lasted approximately 30 minutes, during which time her yoga classmates activated EMS. Patient reports experiencing some bilateral lower extremity tremor while with EMS however this resolved upon arrival to the ED. patient denies any recurrent dizziness in the ED. Related Data Home Medications ?Medication ?Instructions ?Recorded ?Confirmed atorvastatin 20 mg tablet 20 mg PO DAILY 01/04/23 fluoxetine 10 mg capsule 10 mg PO QAM 01/04/23 Allergies Allergy/AdvReac Type Severity Reaction Status Date / Time No Known Allergies (No Known Allergy Verified 03/12/25 19:56 Allergies*) Review of Systems Review of Systems: Yes all other systems are reviewed and are negative PMFSH Past Medical History Medical History Closed fracture of right olecranon process No known health problems Social History Social History Alcohol intake: never Patient Tobacco Use Status: Never used Tobacco Smoked in Last 30 Days: No Second Hand Smoke Exposure: No Use of substances other than those prescribed or required for medical reasons: No Advance Directives: No Advance Directives Information Provided: Yes Do you have a plan to hurt others: No Plan Current occupation: Rt handed Physical Exam Vital Signs: Vital Signs: Last Vital Signs Temp 97.9 F 03/13/25 00:46 Pulse 64 03/13/25 00:46 Resp 15 03/13/25 00:46 BP 139/71 03/13/25 00:46 Pulse Ox 96 03/13/25 00:46 O2 Del Method Room Air 03/13/25 00:46 BMI result Body Mass Index 26.3 CONSTITUTIONAL: The patient appears non-toxic, well nourished and in no acute distress. Vital signs as documented. HEAD: Atraumatic, normocephalic. EYES: EOMs grossly intact, pupils equal, conjunctiva clear, no exudate. ENT: Nares patent, no discharge. Airway patent, no audible stridor, visible mucosa is pink and moist without noted lesions. NECK: Trachea is midline, no obvious masses or gross abnormalities. CHEST: Symmetric movement, normal appearance. LUNGS: LS present and CTAB, no w/r/r. Non-labored work of breathing. CARDIAC: Regular Rhythm, S1/S2 appreciated, no murmurs, rubs or gallops. ABDOMEN: Abdomen soft and non-tender x4 quadrants, no palpable masses or organomegaly. : Deferred. EXTREMITIES: Normal tone, moves all extremities spontaneously without reported pain. No obvious acute injury or deformity noted. NEURO: Alert and oriented x3, CN II-XII intact. Cerebellar Functioning intact. No obvious sensory or motor deficits. Negative [place]-Hallpike, HINTS exam not indicative central process. Speech clear and appropriate. PSYCH: normal affect, appropriate eye contact, fluid speech, with appropriate response to questioning. No reported suicidality or homicidality. SKIN: Warm, dry, color appropriate, normal turgor. No rashes noted. Medications Administered Discontinued Medications Generic Name Dose Route Start Last Admin Trade Name Freq PRN Reason Stop Dose Admin Iohexol 75 ml 03/12/25 23:33 03/12/25 23:33 Iohexol 350 Mg/Ml 100 Ml Infus..Btl IV 03/12/25 23:34 75 ml ONCE ONE Administration Medical Decision Making Medical Decision Making MDM Narrative: 1:05 AM 03/13/2025 (Rad ALVAREZ): The patient is a 64-year-old female presenting to the ED reporting earlier this evening she completed a yoga class, was feeling well throughout the class, however during the cool down. Patient began experiencing sudden onset dizziness described as a room spinning sensation with the associated nausea but without associated vomiting. The patient reports she did not eat well today compared to baseline. On exam patient is markedly well-appearing, no focal neurological deficits, negative [place]-Hallpike, HINTS exam does not indicate central pathology, no other acute findings. Vital signs are reassuring, mild hypertension. The patient's laboratory evaluation is markedly reassuring, no leukocytosis, anemia, electrolyte abnormality, or LIN. No significant LFT abnormality. EKG is nonischemic. Initial troponin is negative. Patient was sent for a CTA head and neck which has resulted and shows no acute abnormalities. The exact cause of the patient's dizziness is not entirely clear, may have been exertional or BPPV, however there is no evidence of any neurologic, cardiac, or infectious pathology causing the patient's symptoms. Seeing as patient's symptoms have resolved patient is likely appropriate for discharge home. We will obtain a repeat troponin and if negative patient will be discharged home to follow up with PCP. 2:03 AM 03/13/2025 (Rad ALVAREZ): 2nd troponin is negative, we will discharge with outpatient follow up. Admission/Observation Consideration of admission/observation: Escalation of care including admission/observation considered Lab Data MDM Lab Attestation statement: I reviewed the patient's lab results. 03/12/25 20:16 03/12/25 20:16 Labs: Lab Results 03/12/25 03/13/25 Range/Units 20:16 01:27 WBC 10.5 (4.8-10.8) X10*3/uL RBC 4.20 (4.20-5.50) X10*6/uL Hgb 12.8 (12.0-16.0) g/dl Hct 37.6 (37.0-47.0) % MCV 89.5 (80.0-98.0) fL MCH 30.5 (27.0-33.0) pg MCHC 34.0 (31.0-35.0) g/dl RDW 13.7 (11.0-16.0) % Plt Count 194 (160-400) X10*3/uL MPV 10.6 (9.4-12.3) fL Immature Gran % (Auto) 0.4 (0.0-0.4) % Neut % (Auto) 68.4 (45-73) % Lymph % (Auto) 24.6 (20-40) % [place] % (Auto) 5.1 (2-11) % Eos % (Auto) 1.1 (0-4) % Baso % (Auto) 0.4 (0-2) % Lymph # (Auto) 2.6 (1.2-4.9) X10*3/uL [place] # (Auto) 0.5 (0.1-1.2) X10*3/uL Eos # (Auto) 0.1 (0.0-0.4) X10*3/uL Baso # (Auto) 0.0 (0.0-0.2) X10*3/uL Abs Immat Gran (auto) 0.04 H (0.00-0.03) X10*3/uL Absolute Neuts (auto) 7.2 (2.0-8.3) x10*3/uL Absolute Nucleated RBC 0.000 (0.0-0.012) X10*3/uL Nucleated RBC % (auto) 0.0 (0.0-0.2) /100WBC Sodium 137 (135-145) mmol/L Potassium 3.5 (3.3-5.1) mmol/L Chloride 102 (96-108) mmol/L Carbon Dioxide 24 (22-29) mmol/L Anion Gap 15 (12-20) BUN 14 (9-16) mg/dL Creatinine 0.67 (0.5-1.4) mg/dL Estim Creat Clear Calc 83.0 Estimated GFR > 60 Random Glucose 129 H (60-115) mg/dL Calcium 8.8 (8.4-10.2) mg/dL Total Bilirubin 0.5 (0.0-1.0) mg/dL AST 35 H (5-31) U/L ALT 10 (0-31) U/L Alkaline Phosphatase 76 (39-117) U/L Troponin I High Sens < 2.7 10.3 D (<3.5-17.0) ng/L Total Protein 7.1 (6.5-8.0) g/dL Albumin 4.4 (3.5-5.0) g/dL Lipase 27 (8-78) U/L Independent Interpretation I performed an independent interpretation of an: EKG (EKG shows sinus rhythm with a rate of 74, no evidence of acute ischemia, no ST elevation, no ectopy. QTC 468, no previous for comparison.) Radiology Impression Discussion of test interpretation with radiology: I have reviewed the radiologist's reading. Radiologist Impression: CLINICAL HISTORY: Acute onset Dizziness CT Head without contrast. CT angiography head and neck with contrast. 3D Postprocessing. Comparison: None provided Findings: HEAD CT: No intra-axial mass, midline shift, hydrocephalus, or acute hemorrhage. No significant atrophy-like change or white matter disease. There is no sinus or mastoid fluid. The orbits are unremarkable. There is no acute fracture. HEAD AND NECK CTA: Aortic arch and cervical great vessels are patent. Atherosclerosis at the origin of the right internal carotid artery, just beyond the carotid bulb. Intracranial arteries are patent. No aneurysm, dissection, or occlusion. No abnormal intracranial enhancement. The visualized thyroid gland is unremarkable. No cervical mass or fluid collection. Right apical blebs. Lungs are otherwise clear. No acute fracture. IMPRESSION: 1. Unremarkable head CT. 2. Patent head and neck CTA. This document has been electronically signed by: Osmany Garcia MD on 03/13/2025 00:23:04 Discharge Plan Discharge Clinical Impression: Nonspecific dizziness Patient Disposition: Home, Self-Care Instructions: Vertigo (ED), Lightheadedness (ED), Dizziness (ED) Additional Instructions: Thank you for choosing [facility] Emergency Department for your care today. Thankfully your laboratory evaluation, EKG, CT head, and exam today are all reassuring. There was no evidence of any acute cardiac, neurologic, infectious, metabolic, or other dangerous cause for your dizziness episode after your yoga class earlier today. At this time there is no indication for admission to the hospital or continued ED observation, and it is safe to discharge you home. The exact cause of your dizziness is not entirely clear, however seeing as your symptoms have improved and can not be reproduced in the ED, and your workup is reassuring, it is safe to follow up outpatient with the primary care provider for additional investigation of the source of your symptoms. Please stay well hydrated and get plenty of rest. Please follow up with your primary care physician for re-evaluation, additional management of your symptoms, and continued preventative care. If you do not have a primary care physician, please call the [facility] at [phone] to establish a new primary care physician. While waiting to establish your new primary care physician, you can call our Walk[facility] at [phone] for non-emergency needs. Please return to the emergency department if you develop a severe or sudden change in your symptoms, a fever over 100.4 that does not improve with Tylenol or Ibuprofen, recurrent vomiting, or any other new or worsening symptoms or concerns. Prescriptions: No Action atorvastatin 20 mg tablet 20 mg PO DAILY fluoxetine 10 mg capsule 10 mg PO QAM Referrals: Physician,Nohemi J [Primary Care Provider, Medical] Clinical Impression: Nonspecific dizziness Print Language: Citizen Of [place]
[2025-03-12] MEDS: iohexoL 350 MG/ML 100 ML INFUS..BTL 75 ML IV (23:33)
[2025-03-13 00:46] VITALS: BP 139/71; PULSE 64; RESP 15; TEMP 36.6; O2SAT 96
[2025-03-13 01:57] LABS: Troponin-I High Sensitivity 10.3 ng/L (<3.5-17.0)
[2025-03-13 02:28] VITALS: BP 143/67; PULSE 64; RESP 15; TEMP 36.6; O2SAT 98
== END 2025-03-13 02:28 | disposition home or self-care (01) ==
PROVIDERS: Physician Assistant; Emergency Provider Emergency Medicine
DX: R42 Dizziness and giddiness (principal); R11.0 Nausea
CPT/HCPCS: 36415; 70496; 70498; 80053; 83690; 84484; 85025; 93005; 99285; Q9967

== ENCOUNTER → 2025-03-12 20:02 | Outpatient (BNV) | payer BC, SELFPAY | PROVIDERS: Emergency Provider Emergency Medicine; Visit Provider Internal Medicine | DX: R42 Dizziness and giddiness (principal) | CPT/HCPCS: 93010 ==

== ENCOUNTER → 2025-03-12 23:05 | Outpatient (BNV) | payer BC, SELFPAY | PROVIDERS: Emergency Provider Emergency Medicine; Visit Provider Student in an Organized Health Care Education/Training Program | DX: R42 Dizziness and giddiness (principal) | CPT/HCPCS: 70496; 70498 ==

== ENCOUNTER 2025-03-21 15:52 | Outpatient (REF) | payer BC, SELFPAY ==
--- OUTSIDE RECORDS SUMMARY | 2024-12-03 03:45 | XMS_ITS ---
Author Organization Mau Fong MD Address [address] [place], [place] [phone] Care Team Providers Care Custom Tailor Apprentice Name Role Phone Mau Fong Primary Care Provider [phone] REASON FOR VISIT fasting lipids Encounters Encounter Location Date Provider Diagnosis Mau Fong MD [address] [place] [phone] 12/03/2024 Mau Fong Hypercholesterolemia E78.00 Assessments Encounter Date Diagnosis (ICD Code) Assessment Notes Treatment Notes Treatment Clinical Notes Section Notes 12/03/2024 Hypercholesterolemia (ICD-10 - E78.00) Plan Of Treatment Pending Test Test Name Order Date Liver Panel 12/03/2024 Lipid Panel with Reflex 12/03/2024 Next Appt Details Provider Name:Mau Benjamin ier, 06/10/2025 07:45:00 AM, [address], Suite [facility], [place], [place], [phone], Provider Name:Mau Tenorio Saloluis eduardo rivera, 06/17/2025 01:00:00 PM, [address] [facility], Suite [facility], [place], [place], [phone], Progress Notes * GARRISON TERRYDOBeverly:1960 (64 yo F)Acc No.[id number]:12/03/2024 Progress Note Patient: GARRISON DOW Provider: Reyna Fong MD :1960 A ge:64 Y S ex:Female Date:12/03/2024 Address:[address] [place] [address] [id number] Subjective: * Chief Complaints: * 1 . [...] 12/03/2024 Generated for Ally brooks/Reed/Chasityitting on: 0 03/21/2025 03:55 PM EDT
--- OUTSIDE RECORDS SUMMARY | 2024-12-06 04:36 | XMS_ITS ---
Author Organization Mau Fong MD Address [address] [place], [place] [phone] Care Team Providers Care White Sourer Name Role Phone Mau Fong Primary Care Provider [phone] REASON FOR VISIT tick bite Medications Medication SIG (Take, Route, Frequency, Duration) Notes Start Date End Date Status Doxycycline Hyclate 100 MG 1 capsule Ora lly twice a day for 1 days 10/08/2024 Active Encounters Encounter Location Date Provider Diagnosis Mau Fong MD [address] [place], [place] [phone] 12/06/2024 Mau Fong Insect bite (nonvenomous) of left shoulder, initial encounter S40.262A Assessments Encounter Date Diagnosis (ICD Code) Assessment Notes Treatment Notes Treatment Clinical Notes Section Notes 12/06/2024 Insect bite (nonvenomous) of left shoulder, initial encounter (ICD-10 - S40.262A) Plan Of Treatment Medication Medication Name Sig Start Date Stop Date Notes Doxycycline Hyclate 100 MG 1 capsule Ora lly twice a day for 1 days 10/08/2024 Next Appt Details Provider Name:Mau rivera, 06/10/2025 07:45:00 AM, [address], [address], [place], [place], [phone], Provider Name:Mau Leongard ier, 06/17/2025 01:00:00 PM, [address], [address], [place], [place], [phone], Progress Notes * HARRISONGARRISONDOB:1960 (64 yo F)Acc No.[id number]:12/06/2024 Patient: GARRISON DOW :1960 A ge:64 Y S ex:Female Address:[address] [place] [address], [address] * Refills Continue Doxycycline Hyclate Capsule, 100 MG, Orally, 2 Capsule, 1 capsule, twice a day, 1 days, Refills=5 * true * Date: Generated for Ally brooks/Reed/Willasmitting on: 0 03/21/2025 03:56 PM EDT
--- OUTSIDE RECORDS SUMMARY | 2024-12-10 07:00 | XMS_ITS ---
Author Organization Mau Fong MD Address [address] [place], [place] [phone] Care Team Providers Care Boat Puller Name Role Phone Mau Fong Primary Care Provider [phone] Allergies No Known Allergies Results Component Value Reference Range Notes Tick-borne Disease Molecular Reviewed date:12/13/2024 08:31:56 AM Interpretation: Performing Lab:[facility], [address] [place] [phone] Notes/Report: Babesia Microti DNA, RT-PCR NOT DETECTED NOT DETECTED This test was developed and its analytical performance characteristics have been determined by [employer]. It has not been cleared or approved by the FDA. This assay has been validated pursuant to the CLIA regulations and is used for clinical purposes. THIS TEST WAS PERFORMED AT: [facility] [address] [place] [phone] VINNY FERRERA MD E.Chaffeensis DNA RT-PCR NOT DETECTED NOT DETECTED This test was developed and its analytical performance characteristics have been determined by [employer]. It has not been cleared or approved by the FDA. This assay has been validated pursuant to the CLIA regulations and is used for clinical purposes. THIS TEST WAS PERFORMED AT: [facility] [address] [place] [phone] VINNY FERRERA MD A. Phagocytphilium DNA,RT-PCR NOT DETECTED NOT DETECTE D This test was developed and its analytical performance characteristics have been determined by [employer]. It has not been cleared or approved by the FDA. This assay has been validated pursuant to the CLIA regulations and is used for clinical purposes. Lyme(Borrelia ssp)DNA RT-PCR NOT DETECTED NOT DETECTED This test was developed and its analytical performance characteristics have been determined by [employer]. It has not been cleared or approved by the FDA. This assay has been validated pursuant to the CLIA regulations and is used for clinical purposes. For additional information, please refer to https://education.[employer]/faq/wnp197 (This link is being provided for informational/ educational purposes only.) THIS TEST WAS PERFORMED AT: [facility] [address] [place] [phone] VINNY FERRERA MD Borrelia Miyamotoi,DNA RT-PCR NOT DETECTED NOT DETECTE D This test was developed and its analytical performance characteristics have been determined by [employer]. It has not been cleared or approved by the FDA. This assay has been validated pursuant to the CLIA regulations and is used for clinical purposes. THIS TEST WAS PERFORMED AT: [facility] [address] [place] [phone] VINNY FERRERA MD Tick Mol. Panel Cmmt [...] be indicated. THIS TEST WAS PERFORMED AT: [facility] [address] [place] [phone] VINNY FERREAR MD REASON FOR VISIT 6 month Medications [...] kg/m2 12/10/2024 weight is down 5 pounds [facility] 10-08-24 Encounters Encounter Location Date Provider Diagnosis Mau Fong MD [address] [place] [address] [place] [phone] 12/10/2024 Mau Fong Essential hypertensi on I10 [...] Details Provider Name:Mau rivera, 06/10/2025 07:45:00 AM, [address] [place] [address], Suite [facility], [place], [place], [phone], Provider Name:Mau rivera, 06/17/2025 01:00:00 PM, [address] [place] [address], [address], [place], [place], [phone], Progress Notes * GARRISON TERRYDOB:1960 (64 yo F)Acc No.[id number]:12/10/2024 Progress Notes Patient: GARRISON DOW Provider: Reyna Fong MD :1960 A ge:64 Y S ex:Female Date:12/10/2024 Address:[address] [place], [place] [phone] Subjective: * Chief Complaints: * 6 month [...] 0 12/10/2024 Generated for Ally brooks/Reed/Chasityitting on: 0 03/21/2025 03:56 PM EDT History and Physical Notes * HPI [...]
--- OUTSIDE RECORDS SUMMARY | 2025-03-14 04:52 | XMS_ITS ---
Author Organization Mau Fong MD Address [address] [place] [phone] Care Team Providers Care Burlesque Dancer Name Role Phone Mau Fong Primary Care Provider REASON FOR VISIT ERV f/u Vertigo Encounters Encounter Location Date Provider Diagnosis Mau Fong MD [address] [place] [phone] 03/14/2025 Mau Fong Plan Of Treatment Next Appt Details Provider Name:Mau Benjamin ier, 06/10/2025 07:45:00 AM, [address] [place] [address], [address] [place] [address], [phone], Provider Name:Mau Benjamin ier, 06/17/2025 01:00:00 PM, [address] [place] [address], [address] [place] [address], [phone], Progress Notes * GARRISON TERRYDOB:1960 (64 yo F)Acc No.[id number]:03/14/2025 Patient: GARRISON DOW :1960 A ge:64 Y S ex:Female Address:[address] [place], [address] * true * Date: Generated for Ally brooks/Reed/Roxann on: 0 03/21/2025 03:56 PM EDT
--- OUTSIDE RECORDS SUMMARY | 2025-03-21 10:00 | XMS_ITS ---
Author Organization Mau Fong MD Address [address] [place], [place] [phone] Care Team Providers Care Vice President Global Advertising Sales Name Role Phone Mau Fong Primary Care Provider [phone] Allergies No Known Allergies REASON FOR VISIT f/u ER Visit Vertigo, patient waiting for flu vac Medications Medication SIG (Take, Route, Frequency, Duration) Notes Start Date End Date Status Meclizine HCl 25 MG 1 tablet as needed Orally every 12 hrs for 10 days 03/21/2025 Active Cetirizine HCl 10 MG 1 tablet [...] a day for 30 days Not-Takin g Albuterol Sulfate HFA 108 (90 Base) MCG/ACT 1 puff as needed Inhalation every 4 hrs for 30 days 01/26/2023 Active Atorvastatin Calcium 20 MG TAKE 1 TABLET BY MOUTH EVERY DAY Active FLUoxetine HCl 10 MG TAKE 1 CAPSULE BY M OUTH EVERY MORNING for 90 Active Amoxicillin-Pot Clavulanate 875-125 MG 1 tablet Orally every 12 hrs for 10 days 09/12/2023 Not-Taking Doxycycline Hyclate 100 MG 1 capsule Orally twice a day for 1 days 10/08/2024 Not-Taking Problems Problem Type SNOMED Code ICD Code Onset Dates Problem Status W/U Status Risk Notes Problem Labyrinthine dysfunction (1995100) Labyrinthine dysfunction, 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 Vital Signs Blood pressure systolic 180 mm Hg 03/21/20 25 Blood pressure diastolic 84 mm Hg 025 Height 65.25 in 03/21/2025 Weight 158 lbs 03/21/2025 BMI 26.09 kg/m2 03/21/2025 weight is 4 pounds since -02-07 Encounters Encounter Location Date Provider Diagnosis Mau Fong MD [address] [place] [address] Drive [address] [place], [place] [phone] 03/21/2025 Mau Fong Labyrinthine dysfunction, bilateral H83.2X3 ; Tick bite W57.XXXA and Essential hypertension I10 Assessments Encounter Date Diagnosis (ICD Code) Assessment Notes Treatment Notes Treatment Clinical Notes Section Notes 03/21/2025 Labyrinthine dysfunction, bilateral (ICD-10 - H83.2X3) patient vrbalized understanding of medication and directions for use 03/21/2025 Tick bite (ICD-10 - W57.XXXA) pending lab 03/21/2025 Essential hypertension (ICD-10 - I10) has mostly good readings so will follow along, will coontnue current regiment Plan Of Treatment Medication Medication Name Sig Start Date Stop Date Notes Meclizine HCl 25 MG 1 tablet as needed O rally every 12 hrs for 10 days 03/21/2025 Treatment Notes Assessment Notes Labyrinthine dysfunction, bilateral nic ent vrbalized understanding of medication and directions for use Tick bite pending lab Essential hypertension has mostly good r eadings so will follow along, will coontnue current regiment Pending Test Test Name Order Date Tick-borne Disease Molecular 03/21/2025 Next Appt Details Provider Name:Mau rivera, 06/10/2025 07:45:00 AM, [address] [facility], [address], [place], [place], [phone], Provider Name:Mau rivera, 06/17/2025 01:00:00 PM, [address], [address], [place], [place], [phone], Progress Notes * GARRISON TERRYDOB:1960 (64 yo F)Acc No.[id number]:03/21/2025 Progress Notes Patient: GARRISON DOW Provider: Reyna Fong MD :1960 A ge:64 Y S ex:Female Date:03/21/2025 Address:[address] [place], [place] [phone] Subjective: * Chief Complaints: * 1 . f/u ER Visit Vertigo. 2. Patient waiting for flu vac. * HPI: S ymptom(s): patient is a 64 yo female here for follow up recent ER visit, vertigo/ couldn't walk because room spinning, pain in neck. nausea. was clammy. bp was high. got tremors in legs. had ct and ecg all neg. ocurred 10 days ago. * ROS: G eneral/Constitutional: Denies C hills. D enies F atigue. D enies F ever. D enies H eadache. E NT: Denies S ore throat. R espiratory: Denies C ough. D enies S hortness of breath at rest. D enies S hortness of breath with exertion. G astrointestinal: Denies D iarrhea. D enies N ausea. N eurologic: Denies B alance difficulty. D enies C oordination.?Admits D izziness. A dmits H eadache. D enies T ransient loss of vision.? * Medical History: c olonoscopy done 03/08/[address] Lokesh Licona in [place] - repeat 10 years, Colonoscopy 09-22-21 Dr Chuckie Skelton [facility], repeat 5yrs 2026. * Medications: T aking Albuterol Sulfate HFA 108 (90 Base) MCG/ACT Aerosol Solution 1 puff as needed Inhalation every 4 hrs , Taking FLUoxetine HCl 10 MG Capsule TAKE 1 CAPSULE BY MOUTH EVERY MORNING , Taking Atorvastatin Calcium 20 MG Tablet TAKE 1 TABLET BY MOUTH EVERY DAY , Not-Taking/PRN Doxycycline Hyclate 100 MG Capsule 1 capsule Orally twice a day , Not-Taking/PRN Amoxicillin-Pot Clavulanate 875-125 MG Tablet 1 tablet Orally every 12 hrs , Not-Taking/PRN Valtrex 1 GM Tablet 1 tablet Orally 3times a day , Not-Taking/PRN Cetirizine HCl 10 MG Tablet 1 tablet Orally Once a day , Not-Taking/PRN Fluticasone Propionate 50 MCG/ACT Suspension INSTILL 2 SPRAYS INTO EACH NOSTRIL ONCE DAILY FOR ALLERGIES Nasal Once a day , Not-Taking/PRN ProAir RespiClick 108 (90 Base) MCG/ACT Aerosol Powder Breath Activated 2 puffs as needed Inhalation every 6 hrs , Medication List reviewed and reconciled with the patient * Allergies: N .K.D.A. Objective: * Vitals: H t: 65.25, Wt: 158, BMI:26.09, BP:180/84, Repeat BP:165/86, Wt-k.67. weight is 4 pounds since 12-10-24. * Examination: G eneral Examination: GENERAL APPEARANCE: w ell developed, well nourished. HEAD: n ormocephalic. EYES: e xtraocular movement full and smooth. SKIN: g ood turgor. HEART: n o murmurs, rubs, gallops, regular rate and rhythm.? LUNGS: n o wheezes, rales, rhonchi, good air movement, clear to auscultation bilaterally. Assessment: * Assessment: 1. L abyrinthine dysfunction, bilateral - H83.2X3 (Primary) 2 . T ick bite - W57.XXXA 3 . E ssential hypertension - I10 Plan: * Treatment: 2. T ick bite L AB: Tick-borne Disease Molecular Notes: pending lab 3. E ssential hypertension Notes: has mostly good readings so will follow along, will coontnue current regiment * Procedure Codes: 3 6415 VENIPUNCT, ROUTINE* * * The named appointment provid er may or may not be the originator of this progress note, and it is not deemed complete until electronically signed by the appointment provider. Sign off status: Pending * Provider: Reyna Fong MD Date: 0 03/21/2025 Generated for Printi ng/Reed/eTransmitting on: 0 03/21/2025 03:56 PM EDT History and Physical Notes * HPI (History of Present Illness) Category Sub-Category Detail Notes Category Not es Symptom(s) patient is a 64 yo female here for follow up recent ER visit, vertigo/ couldn't walk because room spinning, pain in neck. nausea. was clammy. bp was high. got tremors in legs. had ct and ecg all neg. ocurred 10 days ago Examination Category Sub-Category Detail Notes Category Not es General Examination GENERAL APPEARANCE: well developed , well nourished HEAD: normocephalic EYES: extraocular movement full and smooth HEART: no murmurs, rubs, ga llops, regular rate and rhythm LUNGS: no wheezes, rales, r honchi, good air movement, clear to auscultation bilaterally SKIN: good turgor
--- OUTSIDE RECORDS SUMMARY | 2025-03-21 15:56 | XMS_ITS | Encounter Summary ---
Author Organization [facility] Address [address] [facility] [address] [place] [address] Phone Care Team Providers Care Utility Helicopter Repairer Name Role Phone Mau Fong MD Primary Care Provider Mau Fong MD Unavailable [phone] Encounter Details Date Type Department Care Team (Late st Contact Info) Description 09/22/2021 Procedure Pass [facility] Endoscopy Admitting Dept Virtual Department [address] [place] [address] Social History Tobacco Use Types Packs/Day Years [...] on filedocumented in this encounter Care Teams Utility Helicopter Repairer Relationship Specialty Start Date End Date Mau Fong MD [address] [place] [address] [place] [address] PCP - General Internal Medicine 08/18/20 Mau Fong MD [address] [place] [address] [place] [address] Internal Medicine 08/18/20 documented as of this encounter Additional Source Comments The information contained in this document represents components of the legal health record. It is not the complete legal health record.[facility]
--- OUTSIDE RECORDS SUMMARY | 2025-03-21 15:56 | XMS_ITS | Clinical Summary ---
Author Organization [facility] Address [address] [facility] [address] [place] [address] Phone Care Team Providers Care General Clerk Name Role Phone Mau Fong MD Primary Care Provider Mau Fong MD Unavailable [phone] Allergies No known active allergies Medications FLUoxetine (PROZAC) 10 MG capsule Take 1 capsule by mouth every morning. Active Medication-Free Text multivitamin Active atorvastatin (LIPITOR) 20 MG tablet Take 20 mg by mouth daily. 2 Active cholecalciferol , vitamin D3, 12.5 mcg/5 mL (500 unit/5 mL) Liqd Take by mouth. Activ e calcium axp-ixznhjuci-T 3-zinc 84 mg-24 mg- 10 mcg/5 mL [...] 04/18, 08/17/2016 OSTEOPOROSIS SCREENING INITIAL (ONE-TIME) 2024 BLOOD PRESSURE 11/19/2024 05/22/2024 INFLUENZA VACCINE (#1) 2025 , 04/13/2023, 04/09/2022, Additional history exists COVID-19 VACCINE ( season) 2025 03/27/2024, 04/13/2023, 04/13/2023, Additional history exists SMOKING Hx and SMOKELESS TOBACCO SCREENING 05/22/2025 05/22/2024 SCREENING FOR DIABETES 06/04/2027 06/04/2024 Adult Td,Tdap Booster 04/28/2028 04/28/2018 PAP SMEAR 05/22/2029 05/22/2024, 07/2018, 04/16/2019 LIPID PANEL 12/03/2029 12/03/2024, 05/17, [...] this topic Medical Devices Implanted Type Area Mixing Place Supervisor Device Identifier Shelf Expiration Date Model / [...] (12/03/2024 7:56 AM EDT) HDL 61 mg/dL [facility] Comment: Interpretation <40 mg/dL: Low HDL cholesterol (major risk factor for CHD) Greater than or equal to 60 mg/dL: High HDL cholesterol ( negative risk factor for CHD) HDL - cholesterol is affected by a number of factors, e.g. smoking, excerise, hormones, sex and age. CHOLESTEROL 145 0 - 240 mg/dL [facility] TRIGLYCERIDES 126 30 - 160 mg/dL [facility] LDL 59 50 - 129 mg/dL [facility] Comment: LDL levels in terms of risk for coronary heart disease: <100 mg/dL: Optimal 100-129 mg/dL: Near or above optimal 130-159 mg/dL: Borderline high 160-189 mg/dL: High >190 mg/dL: Very High CARDIAC RISK RATIO 2.4(L) 3.3 - 4.4 [facility] Blood 12/03/2024 7:56 AM EDT 12/03/2024 7:58 AM EDT us Mau Fong MD LAB BLOOD ORDERABLES Fi nal Result [address] [address] * Pap Test (05/22/2024 12:00 AM EST) 05/22/2024 05/23/2024 10: 11 AM EST Narrative SEE NARRATIVE - 05/28/2024 3:29 PM EST [address] [address] Auto Body Detailer: Chuckie Meza MD SPEECH ASSISTANT Cytology Report FINAL DIAGNOSIS A. PAP SMEAR (THIN PREP) CE: SPECIMEN ADEQUACY: Satisfactory for evaluation; transformation zone present. INTERPRETATION: NEGATIVE FOR INTRAEPITHELIAL LESION OR MALIGNANCY. Atrophy. This specimen was analyzed by the automated ThinPrep Imaging System (Smart Gardener.) and the selected childress were reviewed by a digital media representative. Electronically Signed Out By: DANNA Trinidad(ASC) The Pap test is a screening test [...] by real-time polymerase chain reaction (PCR) at [facility], [address] [place] [address] using the FDA-approved BD Onclarity9 HPV Assay with extended genotyping. Uses of the assay in scenarios other than those approved by the FDA should be considered off-label use. The accuracy and precision of this test for all other off-label specimen sources has been verified in the Cytopathology Laboratory of the [facility] and has not been cleared or approved [...] : 1960 (Age: 63) Sex: F Institution: [facility] Date of Collection: 05/22/2024 Date of Reported: 05/28/2024 15:29 Results to: Nikkie Curtis MD Nikkie Curtis MD CYTOLOGY ORDERABLES Final Result SEE NARRATIVE * ENDOSCOPY, COLON (09/22/2021 10:18 AM EST) Narrative Transcriptions Js Vargas MD - 09/22/2021 10:18 AM EST Patient Name: Eleanor Terry Attending MD:: JS VARGAS MD Procedure Date: 09/22/2021 10:18 AM Date of : 1960 Age: 61 Admit Type: Outpatient Gender: Female Room: [place] [address] Referring MD: Mau Fong MD Exam Type: [...] monitored continuously. The Olympus adult variable colonoscope [id number] #6 was introduced through the anus and [...] 10:18 AM Procedure Code(s): --- Professional --- 63263, Colonoscopy, flexible; with removal of tumor(s), polyp(s), or other lesion(s) by snare technique --- Technical --- 95556, Colonoscopy, flexible; with removal of tumor(s), polyp(s), [...] or abscess without bleeding CPT copyright 2020 [employer]. All rights reserved. The codes documented in this report are preliminary and upon pulp beater reviewmay be revised to meet current compliance requirements. Procedure Date: 09/22/2021 10:18:[address] [place] [address] Mau Fong MD GI PROCEDURE ORDERABLES Final Result * MAMMOGRAPHY FOR RESULT ENTRY ONLY (05/16/2019) Jazmyn Thornton MD HEALTH MAINTENANCE Final R esult from Last 3 Months or Most Recently Relevant to Health Maintenance Insurance [facility] PPO [facility] PPO BLUE CROSS OUT OF STATE PPO BLUE CROSS OUT OF STATE PPO BLUE CROSS OUT OF STATE PPO BLUE CROSS OUT OF STATE PPO BLUE CROSS OUT OF STATE PPO BLUE CROSS OUT OF STATE PPO BLUE CROSS OUT OF STATE PPO BLUE CROSS OUT OF STATE PPO BLUE CROSS OUT OF STATE PPO BLUE CROSS OUT OF [facility] PPO BLUE CROSS OUT OF [facility] PPO BLUE CROSS OUT OF [facility] PPO BLUE CROSS OUT OF STATE PPO BLUE [place]OSS OUT OF STATE PPO BLUE CROSS OUT OF STATE PPO [facility] OUT OF STATE PPO Care Teams General Clerk Relationship Specialty Start Date End Date Mau Fong MD [address] [place] [address] [place] [address] PCP - General Internal Medicine 08/18/20 Mau Fong MD [address] [place] [address] [place] [address] Internal Medicine 08/18/20 Additional Source Comments The information contained in this document represents components of the legal health record. It is not the complete legal health record.[facility]
--- OUTSIDE RECORDS SUMMARY | 2025-03-21 15:56 | XMS_ITS | Patient Health Record ---
Author Organization Mau Fong MD Address [address] [place], [place] [id number] Care Team Providers Care Import Clerk Name Role Phone Mau Fong Primary Care Provider Allergies No Known Allergies Results Component Value Reference Range Notes Tick-borne Disease Molecular Reviewed date:12/13/2024 08:31:56 AM Interpretation: Performing Lab:[facility], [address] [place] [phone] Notes/Report: Babesia Microti DNA, RT-PCR NOT DETECTED NOT DETECTED This test was developed and its analytical performance characteristics have been determined by [employer]. It has not been cleared or approved by the FDA. This assay has been validated pursuant to the CLIA regulations and is used for clinical purposes. THIS TEST WAS PERFORMED AT: [facility] [address] [place] [phone] VINNY FERRERA MD E.Chaffeensis DNA RT-PCR NOT DETECTED NOT DETECTED This test was developed and its analytical performance characteristics have been determined by [employer]. It has not been cleared or approved by the FDA. This assay has been validated pursuant to the CLIA regulations and is used for clinical purposes. THIS TEST WAS PERFORMED AT: [facility] [address] [place] [phone] VINNY FERRERA MD A. Phagocytphilium DNA,RT-PCR NOT DETECTED NOT DETECTED This test was developed and its analytical performance characteristics have been determined by [employer]. It has not been cleared or approved by the FDA. This assay has been validated pursuant to the CLIA regulations and is used for clinical purposes. Lyme(Borrelia ssp)DNA RT-PCR NOT DETECTED NOT DETECTED This test was developed and its analytical performance characteristics have been determined by [employer]. It has not been cleared or approved by the FDA. This assay has been validated pursuant to the CLIA regulations and is used for clinical purposes. For additional information, please refer to https://education.Hammerless/f aq/ubd895 (This link is being provided for informational/ educational purposes only.) THIS TEST WAS PERFORMED AT: [facility] [address] [place] [phone] VINNY FERRERA MD Borrelia Miyamotoi,DNA RT-PCR NOT DETECTED NOT DETECTED This test was developed and its analytical performance characteristics have been determined by [employer]. It has not been cleared or approved by the FDA. This assay has been validated pursuant to the CLIA regulations and is used for clinical purposes. THIS TEST WAS PERFORMED AT: [facility] [address] [place] [phone] VINNY FERRERA MD Tick Mol. Panel Cmmt [...] be indicated. THIS TEST WAS PERFORMED AT: [facility] [address] [place] [phone] VINNY FERRERA MD MM tomosynthesis screening B I Reviewed date:05/02/2024 09:34:57 PM Interpretation: Performing Lab: Notes/Report: [facility] [address] [place] [address] Mammography Report Signed Patient: Garrison Terry MR#: [id number] 2 : 1960 Acct:[id number] Age/Sex: 63 / F ADM Date: 04/18/24 Loc: HO.MAMMO Attending Dr: Mau Fong MD Ordering Physician: Mau Fong MD Results: 1Ne gative Date of Service: 04/18/24 Follow Up: 1 Year From Orig inal Mammogram Procedure(s): MM tomosynthesis screening BI Accession Number(s): [id number] cc: Mau Fong MD EXAMINATION: MM SCREENING [...] 04/29/24 1415 DD/ 0845 TD/TT: 04/18/24 0855 Superannuation Funds Manager: [facility] [address] [place] [address] Mammography Report Signed Patient: Tenzin Terry ra MR#: [id number] 2 : 1960 Acct:[id number] Age/Sex: 63 / F ADM Date: 04/18/24 Loc: HOKatherineMAMMO Attending Dr: Mau Fong MD Ordering Physician: Mau Fong MD Results: 1Ne gative Date of Service: 04/18/24 Follow Up: 1 Year From Orig inal Mammogram Procedure(s): MM tomosynthesis screening BI Accession Number(s): [id number] cc: Mau Fong MD EXAMINATION: MM SCREENING [...] 04/29/24 1415 DD/ 0845 TD/TT: 04/18/24 0855 Superannuation Funds Manager: XR ribs LT min 3V w CXR1V Reviewed date:06/21/2024 01:45:57 PM Interpretation: Performing Lab: Notes/Report: [address] [address] XRay Report Signed Patient: Garrison Terry MR#: [id number] 2 : 1960 Acct:[id number] Age/Sex: 63 / F ADM Date: 06/21/24 Loc: HO.TAMMY Attending Dr: Mau Fong MD Ordering Physician: Mau Fong MD Date of Service: 06/21/24 Procedure(s): XR ribs LT min 3V w CXR1V Accession Number(s): [id number] cc: Mau Fong MD EXAMINATION: XR RIBS, [...] 06/21/24 1113 DD/ 2 TD/TT: 06/21/24 0841 Superannuation Funds Manager: [place] [address] XRay Report Signed Patient: Tenzin Terry ra MR#: [id number] 2 : 1960 Acct:[id number] Age/Sex: 63 / F ADM Date: 06/21/24 Loc: HO.XRAY Attending Dr: Mau Fong MD Ordering Physician: Mau Fong MD Date of Service: 06/21/24 Procedure(s): XR rib s LT min 3V w CXR1V Accession Number(s): [id number] cc: Mau Fong MD EXAMINATION: XR RIBS, [...] 06/21/24 1113 DD/ 0823 TD/TT: 06/21/24 0841 Superannuation Funds Manager: Reason For Referral No Information Medications Medication SIG (Take, Route, Frequency, Duration) Notes Start Date End Date Status Meclizine HCl 25 MG 1 tablet as needed Orally every 12 hrs for 10 days 03/21/2025 Active Albuterol Sulfate HFA 108 (90 Base) MCG/ACT [...] a day for 1 days 10/08/2024 Not-Taking Cetirizine HCl 10 MG 1 tablet Orally [...] a day for 30 days Not-Takin g Immunizations Vaccine Route Administration Date Status Comme nts Flu Vaccine IM Intramuscular 06/21/2017 Administered pt wa s given the vaccine at [facility]. Flu Vaccine IM Intramuscular 04/28/2018 Administered pt wa s given the vaccine at [facility] in [place]. TDaP IM Intramuscular 04/28/2018 Administered pt was given the vaccine at [facility] in [facility]. PPSV23 (Pnemovax) IM Intramuscular 04/28/2018 Administered pt was given the vaccine at the [facility] in [place]. Tetanus Unknown 04/28/2018 Administered Fluarix Quadrivalent IM Intramuscular 04/06/2019 Administe red pt was given the vaccine at [facility] in [place]. 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 Problem 54391778 Essential hypert ension (I10) Active confirmed Problem Psoriasis (9459600) Psoriasis (L40.9) Active confirmed Problem 68573763 Dysthymia (F34.1) Active confirmed Problem 822261685 Recurrent sinus infections (J32.9) Active confirmed Problem 90421572 Hypercholesterol emia (E78.00) Active confirmed Problem 406737312 Hyperplastic col onic polyp, unspecified part of colon (K63.5) Active confirmed Problem 376889104 Temporary low pl atelet count (D69.6) Active confirmed Vital Signs Blood pressure diastolic 84 mm Hg 03/21/2025 gaston ght is 4 pounds since 12-10-24 Height 65.25 in 03/21/2025 weight is 4 luisito nds since 12-10-24 Blood pressure systolic 180 mm Hg 03/21/2025 weig ht is 4 pounds since 12-10-24 Weight 158 lbs 03/21/2025 weight is 4 luisito nds since 12-10-24 BMI 26.09 kg/m2 03/21/2025 weight is 4 luisito nds since 12-10-24 Encounters Encounter Location Date Provider Diagnosis Mau Fong MD [address] [place] [id number] 03/21/2025 Mau Fong Labyrinthine dysfunc tion, bilateral H83.2X3 ; Tick bite W57.XXXA and Essential hypertension I10 Mau Fong MD [address] [place] [id number] 06/11/2024 Mau Fong Hypercholesterolemia E78.00 ; Annual physical exam Z00.00 ; Essential hypertension I10 ; Rib pain on left side R07.81 and Depression screening Z13.31 Mau Fong MD [address] [place] [id number] 10/08/2024 Mau Fong Insect bite (nonveno mous) of left shoulder, initial encounter S40.262A Mau Fong MD [address] [place] [address] Drive [address] [place] [id number] 12/10/2024 Mau Fong Essential hypertensi on I10 ; Hypercholesterolemia E78.00 and Tick bite W57.XXXA Mau Fong MD [address] [place] [address] [id number] 06/21/2024 Mau Fong MD [address] [place] [id number] 12/06/2024 Mau Fong Insect bite (nonveno mous) of left shoulder, initial encounter S40.262A Mau Fong MD [address] [place] [id number] 03/14/2025 Mau Fong Assessments Encounter Date Diagnosis (ICD Code) Assessment Notes Treatment Notes Treatment Clinical Notes Section Notes 03/21/2025 Labyrinthine dysfunction, bilateral (ICD-10 - H83.2X3) patient vrbalized understanding of medication and directions for use 03/21/2025 Tick bite (ICD-10 - W57.XXXA) pending lab 06/11/2024 Hypercholesterolemia (ICD-10 - E78.00) doing well [...] left shoulder, initial encounter (ICD-10 - S40.262A) 03/21/2025 Essential hypertensi on (ICD-10 - I10) has mostly good readings so will follow along, will coontnue current regiment 06/11/2024 Essential hypertensi on (ICD-10 - I10) well controlled, will continue current regiment 12/10/2024 Tick bite (ICD-10 - W57.XXXA) pending diagnostic labs 06/11/2024 Rib pain on left josé e (ICD-10 - R07.81) pending diagnostic testing 06/11/2024 Depression screening (ICD-10 - Z13.31) negative screen Plan Of Treatment Pending Test Test Name Order Date BONE DENSITY DEXA 05/25/2021 Tick-borne Disease Molecular 03/21/2025 XR ribs LT 2V 06/11/2024 Next Appt Details Provider Name:Mau rivera, 06/10/2025 07:45:00 AM, [address] [place] [address], [address], [place], [phone], Provider Name:Mau rivera, 06/17/2025 01:00:00 PM, [address] [place] [address], [address], [place], [place], [phone], Insurance Providers Payer Name Payer Address Payer Phone Subscriber Number Group Number Insured Name Patient Relationship to Insured Coverage Start Date Coverage End Date [employer]UE [employer] BLUE [employer]IELD [address] [place], [place] [id number] GARRISON TERRY Self - patient is the insured Medical (General) History Medical History History ICD Code colonoscopy done 03/08/[address] Lokesh Licona in [place] - repeat 10 years Colonoscopy 09-22-21 Dr Chuckie Skelton [facility], repeat 5yrs 2026
[2025-03-22 18:23] LABS: A. Phagocytphilium DNA,RT-PCR NOT DETECTED (NOT DETECTED); Babesia Microti DNA, RT-PCR NOT DETECTED (NOT DETECTED); Borrelia Miyamotoi,DNA RT-PCR NOT DETECTED (NOT DETECTED); E.Chaffeensis DNA RT-PCR NOT DETECTED (NOT DETECTED); Lyme(Borrelia ssp)DNA RT-PCR NOT DETECTED (NOT DETECTED)
== END 2025-03-21 15:53 | disposition home or self-care (01) ==
LOC: HO.LNP 15:52
PROVIDERS: Visit Provider Internal Medicine
DX: H83.2X3 Labyrinthine dysfunction, bilateral (principal); W57.XXXA Bitten or stung by nonvenomous insect and other nonvenomous arthropods, initial encounter
CPT/HCPCS: 87468; 87469; 87478; 87484; 87798

== ENCOUNTER 2025-04-22 08:26 | Outpatient (REF) | payer BC, SELFPAY ==
--- OUTSIDE RECORDS SUMMARY | 2024-12-03 03:45 | XMS_ITS ---
Author Organization Mau Fong MD Address [address] [place], [place] [phone] Care Team Providers Care Conservation Policy Analyst Name Role Phone Mau Fong Primary Care Provider [phone] REASON FOR VISIT fasting lipids Encounters Encounter Location Date Provider Diagnosis Mau Fong MD [address] [place] [phone] 12/03/2024 Mau Fong Hypercholesterolemia E78.00 Assessments Encounter Date Diagnosis (ICD Code) Assessment Notes Treatment Notes Treatment Clinical Notes Section Notes 12/03/2024 Hypercholesterolemia (ICD-10 - E78.00) Plan Of Treatment Pending Test Test Name Order Date Liver Panel 12/03/2024 Lipid Panel with Reflex 12/03/2024 Next Appt Details Provider Name:Mau Benjamin ier, 06/10/2025 07:45:00 AM, [address], Suite [facility], [place], [place], [phone], Provider Name:Mau Tenorio Saloluis eduardo rivera, 06/17/2025 01:00:00 PM, [address] [facility], Suite [facility], [place], [place], [phone], Progress Notes * GARRISON TERRYDOBeverly:1960 (64 yo F)Acc No.[id number]:12/03/2024 Progress Note Patient: GARRISON DOW Provider: Reyna Fong MD :1960 A ge:64 Y S ex:Female Date:12/03/2024 Address:[address] [place] [address] [id number] Subjective: * Chief Complaints: * 1 . [...] 0 12/03/2024 Generated for Ally brooks/Reed/Chasityitting on: 1 08:55 AM EDT
--- OUTSIDE RECORDS SUMMARY | 2024-12-06 04:36 | XMS_ITS ---
Author Organization Mau Fong MD Address [address] [place], [place] [phone] Care Team Providers Care Manager Wind Name Role Phone Mau Fong Primary Care Provider REASON FOR VISIT tick bite Medications Medication SIG (Take, Route, Frequency, Duration) Notes Start Date End Date Status Doxycycline Hyclate 100 MG 1 capsule Ora lly twice a day for 1 days 10/08/2024 Active Encounters Encounter Location Date Provider Diagnosis Mau Fong MD [address] [place], [place] [phone] 12/06/2024 Mau Fong Insect bite (nonvenomous) of [...] 07:45:00 AM, [address], [address], [place], [place], [phone], Provider Name:Mau Leongard ier, 06/17/2025 01:00:00 PM, [address], [address], [place], [place], [phone], Progress Notes * HARRISONGARRISONDOB:1960 (64 yo F)Acc No.[id number]:12/06/2024 Patient: GARRISON DOW :1960 A ge:64 Y S ex:Female Address:[address] [place] [address], [address] * Refills Continue Doxycycline Hyclate Capsule, 100 MG, Orally, 2 Capsule, 1 capsule, twice a day, 1 days, Refills=5 * true * Date: Generated for Ally brooks/Reed/eTottosmitting on: 1 08:56 AM EDT
--- OUTSIDE RECORDS SUMMARY | 2024-12-10 07:00 | XMS_ITS ---
Author Organization Mau Fong MD Address [address] [place], [place] [id number] Care Team Providers Care Mysql Developer Name Role Phone Mau Fong Primary Care Provider [phone] Allergies No Known Allergies Results Component Value Reference Range Notes Tick-borne Disease Molecular Reviewed date:12/13/2024 08:31:56 AM Interpretation: Performing Lab:[facility], [address] [place] [phone] Notes/Report: Babesia Microti DNA, RT-PCR NOT DETECTED NOT DETECTED This test was developed and its analytical performance characteristics have been determined by [employer]. It has not been cleared or approved by the FDA. This assay has been validated pursuant to the CLIA regulations and is used for clinical purposes. THIS TEST WAS PERFORMED AT: [facility] [address] [place] [phone] VINNY FERRERA MD E.Chaffeensis DNA RT-PCR NOT DETECTED NOT DETECTED This test was developed and its analytical performance characteristics have been determined by [employer] [facility]. It has not been cleared or approved by the FDA. This assay has been validated pursuant to the CLIA regulations and is used for clinical purposes. THIS TEST WAS PERFORMED AT: [facility] [address] [place] [phone] VINNY FERRERA MD A. Phagocytphilium DNA,RT-PCR NOT DETECTED NOT DETECTE D This test was developed and its analytical performance characteristics have been determined by [employer]. It has not been cleared or approved by the FDA. This assay has been validated pursuant to the CLIA regulations and is used for clinical purposes. Lyme(Borrelia ssp)DNA RT-PCR NOT DETECTED NOT DETECTED This test was developed and its analytical performance characteristics have been determined by [employer] [facility]. It has not been cleared or approved by the FDA. This assay has been validated pursuant to the CLIA regulations and is used for clinical purposes. For additional information, please refer to https://education.[employer]/faq/hxd913 (This link is being provided for informational/ educational purposes only.) THIS TEST WAS PERFORMED AT: [facility] [address] [place] [phone] VINNY FERRERA MD Borrelia Miyamotoi,DNA RT-PCR NOT DETECTED NOT DETECTE D This test was developed and its analytical performance characteristics have been determined by [employer] [facility]. It has not been cleared or approved by the FDA. This assay has been validated pursuant to the CLIA regulations and is used for clinical purposes. THIS TEST WAS PERFORMED AT: [facility] [address] [place] [phone] VINNY FERRERA MD Tick Mol. Panel Cmmt SEE NOTE A negative result does not exclude Borrelia infection as the concentration of the organism in blood may be low or non-existent in patients with Lyme disease, and may depend on timing of specimen collection from onset of symptoms. Clinical correlation is recommended and additional studies such as serologic testing may be indicated. THIS TEST WAS PERFORMED AT: [facility] [address] [place] [phone] VINNY FERRERA MD REASON FOR VISIT 6 month Medications Medication SIG (Take, Route, Frequency, Duration) Notes Start Date End Date Status Cetirizine HCl 10 MG 1 tablet Orally Onc e a day Not-Taking Valtrex 1 GM 1 tablet Orally 3tim es a day for 7 days 08/27/2020 Not-Taking ProAir RespiClick 108 (90 Base) MCG/ACT 2 puffs as needed Inhalation every 6 hrs for 30 days 10/17/2017 Not-Taking Fluticasone Propionate 50 MCG/ACT INSTILL 2 SPRAYS INTO EACH NOSTRIL ONCE DAILY FOR ALLERGIES Nasal Once a day for 30 days Not-Takin g Amoxicillin-Pot Clavulanate 875-125 MG 1 tablet Orally every 12 hrs for 10 days 09/12/2023 Not-Taking Albuterol Sulfate HFA 108 (90 Base) MCG/ACT 1 puff as needed Inhalation every 4 hrs for 30 days 01/26/2023 Active Atorvastatin Calcium 20 MG TAKE 1 TABLET BY MOUTH EVERY DAY Active FLUoxetine HCl 10 MG TAKE 1 CAPSULE BY M OUTH EVERY MORNING for 90 Active Doxycycline Hyclate 100 MG 1 capsule Orally twice a day for 1 days 10/08/2024 Not-Taking Vital Signs Blood pressure systolic 124 mm Hg 12/11/19 Blood pressure diastolic 70 mm Hg 025 Height 65.25 in 12/10/2024 Weight 154 lbs 12/10/2024 BMI 25.43 kg/m2 12/10/2024 weight is down 5 pounds replaced by [facility] 10-08-24 Encounters Encounter Location Date Provider Diagnosis Mau Fong MD [address] [place] [address] [place] [id number] 12/10/2024 Mau Fong Essential hypertensi on I10 ; Hypercholesterolemia E78.00 and Tick bite W57.XXXA Assessments Encounter Date Diagnosis (ICD Code) Assessment Notes Treatment Notes Treatment Clinical Notes Section Notes 12/10/2024 Essential hypertensi on (ICD-10 - I10) stable, will cntinue to monitor 12/10/2024 Hypercholesterolemia (ICD-10 - E78.00) stable, will continue current regiment 12/10/2024 Tick bite (ICD-10 - W57.XXXA) pending diagnostic labs Plan Of Treatment Medication Medication Name Sig Start Date Stop Date Notes Atorvastatin Calcium 20 MG TAKE 1 TABLET BY MOUTH EVERY DAY Treatment Notes Assessment Notes Essential hypertension stable, will cnti nue to monitor Hypercholesterolemia stable, will contin ue current regiment Tick bite pending diagnostic l abs Next Appt Details Provider Name:Mau rivera, 06/10/2025 07:45:00 AM, [address] [place] [address], [address] [facility], [place], [place], [phone], Provider Name:Mau rivera, 06/17/2025 01:00:00 PM, [address] [place] [address], [address], [place], [place], [phone], Progress Notes * GARRISON TERRYDOB:1960 (64 yo F)Acc No.[id number]:12/10/2024 Progress Notes Patient: GARRISON DOW Provider: Reyna Fong MD :1960 A ge:64 Y S ex:Female Date:12/10/2024 Address:[address] [place], [place] [phone] Subjective: * Chief Complaints: * 6 month * HPI: S ymptom(s): patient is a 64 yo female here for 6 month follow up visit. * ROS: G eneral/Constitutional: Denies Veena hills. D enies F atigue. D enies F ever. D enies H eadache. E NT: Denies S ore throat. R espiratory: Shakira Curiel ough. D enies S hortness of breath at rest. D enies S hortness of breath with exertion. G astrointestinal: Denies D iarrhea. D enies N ausea. * Medical History: * Surgical History: * Hospitalization/Major Diagno stic Procedure: * Medications: T akingAlbuterol Sulfate HFA 108 (90 Base) MCG/ACT Aerosol Solution 1 puff as needed Inhalation every 4 hrs Atorvastatin Calcium 20 MG Tablet TAKE 1 TABLET BY MOUTH EVERY DAY FLUoxetine HCl 10 MG Capsule TAKE 1 CAPSULE BY MOUTH EVERY MORNING Taking Albuterol Sulfate HFA 108 (90 Base) MCG/ACT Aerosol Solution 1 puff as needed Inhalation every 4 hrs Taking Atorvastatin Calcium 20 MG Tablet TAKE 1 TABLET BY MOUTH EVERY DAY Taking FLUoxetine HCl 10 MG Capsule TAKE 1 CAPSULE BY MOUTH EVERY MORNING Not-Taking/PRNDoxycycline Hyclate 100 MG Capsule 1 capsule Orally twice a day Amoxicillin-Pot Clavulanate 875-125 MG Tablet 1 tablet Orally every 12 hrs Valtrex 1 GM Tablet 1 tablet Orally 3times a day Cetirizine HCl 10 MG Tablet 1 tablet Orally Once a day Fluticasone Propionate 50 MCG/ACT Suspension INSTILL 2 SPRAYS INTO EACH NOSTRIL ONCE DAILY FOR ALLERGIES Nasal Once a day ProAir RespiClick 108 (90 Base) MCG/ACT Aerosol Powder Breath Activated 2 puffs as needed Inhalation every 6 hrs Medication List reviewed and reconciled with the patientNot-Taking/PRN Doxycycline Hyclate 100 MG Capsule 1 capsule Orally twice a day Not-Taking/PRN Amoxicillin- Pot Clavulanate 875-125 MG Tablet 1 tablet Orally every 12 hrs Not-Taking/PRN Valtrex 1 GM Tablet 1 tablet Orally 3times a day Not-Taking/PRN Cetirizine HCl 10 MG Tablet 1 tablet Orally Once a day Not-Taking/PRN Fluticasone Propionate 50 MCG/ACT Suspension INSTILL 2 SPRAYS INTO EACH NOSTRIL ONCE DAILY FOR ALLERGIES Nasal Once a day Not-Taking/PRN ProAir RespiClick 108 (90 Base) MCG/ACT Aerosol Powder Breath Activated 2 puffs as needed Inhalation every 6 hrs Medication List reviewed and reconciled with the patient * Allergies: N .K.D.A.yes[Allergies Verified] Objective: * Vitals: H t: 65.25, Wt: 154, BMI:25.43, BP:124/70, Wt-k.85. weight is down 5 pounds since 10-08-24. * Examination: G eneral Examination: GENERAL APPEARANCE: a lert, well hydrated, in no distress.? HEAD: n ormocephalic. SKIN: g ood turgor. HEART: r egular rate and rhythm, no murmurs, rubs, gallops.? LUNGS: n o wheezes, rales, rhonchi, good air movement, clear to auscultation bilaterally. Assessment: * Assessment: 1. E ssential hypertension - I10 (Primary) 2 . H ypercholesterolemia - E78.00 3 . T ick bite - W57.XXXA Plan: * Treatment: 2. H ypercholesterolemia Continue Atorvastatin Calcium Tablet, 20 MG, TAKE 1 TABLET BY MOUTH EVERY DAY. Notes: stable, will continue current regiment 3. T ick bite L AB: Tick-borne Disease Molecular (Collection Date & Time - 12/10/2024 11:00 AM) Notes: pending diagnostic labs * Procedure Codes: 3 6415 VENIPUNCT, ROUTINE* * * Sign off status: Completed true * Provider: Reyna Fong MD Date: 0 12/10/2024 Generated for Ally brooks/Reed/Chasityitting on: 1 08:55 AM EDT History and Physical Notes * HPI (History of Present Illness) Category Sub-Category Detail Notes Category Not es Symptom(s) patient is a 64 yo female here for 6 month follow up visit Examination Category Sub-Category Detail Notes Category Not es General Examination GENERAL APPEARANCE: alert, w ell hydrated, in no distress HEAD: normocephalic HEART: regular rate and rhy thm, no murmurs, rubs, gallops LUNGS: no wheezes, rales, r honchi, good air movement, clear to auscultation bilaterally SKIN: good turgor
--- OUTSIDE RECORDS SUMMARY | 2025-03-14 04:52 | XMS_ITS ---
Author Organization Mau Fong MD Address [address] [place] [phone] Care Team Providers Care Chief Communications Officer Name Role Phone Mau Fong Primary Care Provider REASON FOR VISIT ERV f/u Vertigo Encounters Encounter Location Date Provider Diagnosis Mau Fong MD [address] [place] [phone] 03/14/2025 Mau Fong Plan Of Treatment Next Appt Details Provider Name:Mau Benjamin ier, 06/10/2025 07:45:00 AM, [address] [place] [address], [address] [place] [address], [phone], Provider Name:Mau Benjamin ier, 06/17/2025 01:00:00 PM, [address] [place] [address], [address] [place] [address], [phone], Progress Notes * GARRISON TERRYDOB:1960 (64 yo F)Acc No.[id number]:03/14/2025 Patient: GARRISON DOW :1960 A ge:64 Y S ex:Female Address:[address] [place], [address] * true * Date: Generated for Ally brooks/Reed/Roxann on: 1 08:55 AM EDT
--- OUTSIDE RECORDS SUMMARY | 2025-03-21 10:00 | XMS_ITS ---
Author Organization Mau Fong MD Address [address] [place], [place] [phone] Care Team Providers Care Computer Forensic Specialist Name Role Phone Mau Fong Primary Care Provider Allergies No Known Allergies Results Component Value Reference Range Notes Tick-borne Disease Molecular Reviewed date:03/23/2025 05:29:21 PM Interpretation: Performing Lab:[facility], [address] [place] [phone] Notes/Report: Babesia Microti DNA, RT-PCR NOT DETECTED NOT DETECTED This test was developed and its analytical performance characteristics have been determined by [employer]. It has not been cleared or approved by the FDA. This assay has been validated pursuant to the CLIA regulations and is used for clinical purposes. THIS TEST WAS PERFORMED AT: [facility] [address] [place] [phone] VINNY FERRERA MD E.Chaffeensis DNA RT-PCR NOT DETECTED NOT DETECTED This test was developed and its analytical performance characteristics have been determined by [employer]. It has not been cleared or approved by the FDA. This assay has been validated pursuant to the CLIA regulations and is used for clinical purposes. THIS TEST WAS PERFORMED AT: [facility] [address] [place] [phone] VINNY FERRERA MD A. Phagocytphilium DNA,RT-PCR NOT DETECTED NOT DETECTE D This test was developed and its analytical performance characteristics have been determined by [employer]. It has not been cleared or approved by the FDA. This assay has been validated pursuant to the CLIA regulations and is used for clinical purposes. Lyme(Borrelia ssp)DNA RT-PCR NOT DETECTED NOT DETECTED This test was developed and its analytical performance characteristics have been determined by [employer]. It has not been cleared or approved by the FDA. This assay has been validated pursuant to the CLIA regulations and is used for clinical purposes. For additional information, please refer to https://education.Scooters/faq/arx891 (This link is being provided for informational/ educational purposes only.) THIS TEST WAS PERFORMED AT: [facility] [address] [place] [phone] VINNY FERRERA MD Borrelia Miyamotoi,DNA RT-PCR NOT DETECTED NOT DETECTE D This test was developed and its analytical performance characteristics have been determined by [employer]. It has not been cleared or approved by the FDA. This assay has been validated pursuant to the CLIA regulations and is used for clinical purposes. THIS TEST WAS PERFORMED AT: [facility] [address] [place] [phone] VINNY FERRERA MD Tick Mol. Panel Cmmt [...] be indicated. 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 Vital Signs Blood pressure systolic 180 mm Hg 03/21/20 25 Blood pressure diastolic 84 mm Hg 025 Height 65.25 in 03/21/2025 Weight 158 lbs 03/21/2025 BMI 26.09 kg/m2 03/21/2025 weight is 4 pounds since 5-2 - Encounters Encounter Location Date Provider Diagnosis Mau Fong MD [address] [place] [address] [address] [place], [place] [phone] 03/21/2025 Mau Fong Labyrinthine dysfunction, bilateral H83.2X3 [...] will follow along, will coontnue current regiment Next Appt Details Provider Name:Mau Benjamin ier, 06/10/2025 07:45:00 AM, [address], [address], [place], [place], [phone], Provider Name:Mau Benjamin ier, 06/17/2025 01:00:00 PM, [address], [address], [place], [place], [phone], Progress Notes * GARRISON TERRYDOB:1960 (64 yo F)Acc No.[id number]:03/21/2025 Progress Notes Patient: GARRISON DOW Provider: Reyna Fong MD :1960 A ge:64 Y S ex:Female Date:03/21/2025 Address:[address] [place], [place] [phone] Subjective: * Chief Complaints: * f /u ER Visit VertigoPatient waiting for flu vac * HPI: S ymptom(s): patient is a [...] ransient loss of vision.? * Medical History: * Surgical History: * Hospitalization/Major Diagno stic Procedure: * Medications: T akingAlbuterol Sulfate HFA 108 (90 Base) MCG/ACT Aerosol Solution 1 puff as needed Inhalation every 4 hrs FLUoxetine HCl 10 MG Capsule TAKE 1 CAPSULE BY MOUTH EVERY MORNING Atorvastatin Calcium 20 MG Tablet TAKE 1 TABLET BY MOUTH EVERY DAY Taking Albuterol Sulfate HFA 108 (90 Base) MCG/ACT Aerosol Solution 1 puff as needed Inhalation every 4 hrs Taking FLUoxetine HCl 10 MG Capsule TAKE 1 CAPSULE BY MOUTH EVERY MORNING Taking Atorvastatin Calcium 20 MG Tablet TAKE 1 TABLET BY MOUTH EVERY DAY Not-Taking/PRNDoxycycline Hyclate 100 MG Capsule 1 capsule [...] Disease Molecular (Collection Date & Time - 03/21/2025 02:00 PM) Notes: pending lab 3. E ssential hypertension Notes: has mostly good readings so will follow along, will coontnue current regiment * Procedure Codes: 3 6415 VENIPUNCT, ROUTINE* * * Sign off status: Completed true * Provider: Reyna Fong MD Date: 0 03/21/2025 Generated for Ally brooks/Reed/eTransmitting on: 1 08:56 AM EDT History and Physical Notes * [...]
--- OUTSIDE RECORDS SUMMARY | 2025-04-22 08:55 | XMS_ITS | Patient Health Record ---
Author Organization Mau Fong MD Address [address] [place], [place] [phone] Care Team Providers Care Garden Tractor Mechanic Name Role Phone Mau Fong Primary Care Provider [phone] Allergies No Known Allergies Results Component Value Reference Range Notes Tick-borne Disease Molecular Reviewed date:12/13/2024 08:31:56 AM Interpretation: Performing Lab:[facility], [address] [place] [phone] Notes/Report: Babesia Microti DNA, RT-PCR NOT DETECTED NOT DETECTED This test was developed and its analytical performance characteristics have been determined by [employer]. It has not been cleared or approved by the FDA. This assay has been validated pursuant to the CLIA regulations and is used for clinical purposes. THIS TEST WAS PERFORMED AT: [facility] [address] [place] [phone] VINNY FERRERA MD E.Chaffeensis DNA RT-PCR NOT DETECTED NOT DETECTED This test was developed and its analytical performance characteristics have been determined by [employer]. It has not been cleared or approved by the FDA. This assay has been validated pursuant to the CLIA regulations and is used for clinical purposes. THIS TEST WAS PERFORMED AT: [facility] [address] [place] [phone] VINNY FERRERA MD A. Phagocytphilium DNA,RT-PCR NOT DETECTED NOT DETECTED This test was developed and its analytical performance characteristics have been determined by [employer]. It has not been cleared or approved by the FDA. This assay has been validated pursuant to the CLIA regulations and is used for clinical purposes. Lyme(Borrelia ssp)DNA RT-PCR NOT DETECTED NOT DETECTED This test was developed and its analytical performance characteristics have been determined by [employer]. It has not been cleared or approved by the FDA. This assay has been validated pursuant to the CLIA regulations and is used for clinical purposes. For additional information, please refer to https://education.Real Time Tomography/f aq/fzy229 (This link is being provided for informational/ educational purposes only.) THIS TEST WAS PERFORMED AT: [facility] [address] [place] [phone] VINNY FERRERA MD Borrelia Miyamotoi,DNA RT-PCR NOT DETECTED NOT DETECTED This test was developed and its analytical performance characteristics have been determined by [employer]. It has not been cleared or approved by the FDA. This assay has been validated pursuant to the CLIA regulations and is used for clinical purposes. THIS TEST WAS PERFORMED AT: [facility] [address] [place] [phone] VINNY FERRERA MD Tick Mol. Panel Cmmt [...] be indicated. THIS TEST WAS PERFORMED AT: [facility] [address] [place] [phone] VINNY FERRERA MD Tick-borne Disease Molecular Reviewed date:03/23/2025 05:29:21 PM Interpretation: Performing Lab:[facility], [address] [place] [phone] Notes/Report: Babesia Microti DNA, RT-PCR NOT DETECTED NOT DETECTED This test was developed and its analytical performance characteristics have been determined by [employer]. It has not been cleared or approved by the FDA. This assay has been validated pursuant to the CLIA regulations and is used for clinical purposes. THIS TEST WAS PERFORMED AT: [facility] [address] [phone] VINNY FERRERA MD E.Chaffeensis DNA RT-PCR NOT DETECTED NOT DETECTED This test was developed and its analytical performance characteristics have been determined by [employer]. It has not been cleared or approved by the FDA. This assay has been validated pursuant to the CLIA regulations and is used for clinical purposes. THIS TEST WAS PERFORMED AT: [facility] [address] [place] [phone] VINNY FERRERA MD A. Phagocytphilium DNA,RT-PCR NOT DETECTED NOT DETECTED This test was developed and its analytical performance characteristics have been determined by [employer]. It has not been cleared or approved by the FDA. This assay has been validated pursuant to the CLIA regulations and is used for clinical purposes. Lyme(Borrelia ssp)DNA RT-PCR NOT DETECTED NOT DETECTED This test was developed and its analytical performance characteristics have been determined by [employer]. It has not been cleared or approved by the FDA. This assay has been validated pursuant to the CLIA regulations and is used for clinical purposes. For additional information, please refer to https://education.Real Time Tomography/f aq/rww467 (This link is being provided for informational/ educational purposes only.) THIS TEST WAS PERFORMED AT: [facility] [address] [place] [phone] VINNY FERRERA MD Borrelia Miyamotoi,DNA RT-PCR NOT DETECTED NOT DETECTED This test was developed and its analytical performance characteristics have been determined by [employer]. It has not been cleared or approved by the FDA. This assay has been validated pursuant to the CLIA regulations and is used for clinical purposes. THIS TEST WAS PERFORMED AT: [facility] [address] [place] [phone] VINNY FERRERA MD Tick Mol. Panel Cmmt [...] be indicated. THIS TEST WAS PERFORMED AT: [facility] [address] [place] [phone] VINNY FERRERA MD XR ribs LT min 3V w CXR1V Reviewed date:06/21/2024 01:45:57 PM Interpretation: Performing Lab: Notes/Report: [address] [address] XRay Report Signed Patient: Eleanor Terry MR#: [id number] 2 : 1960 Acct:[id number] Age/Sex: 63 / F ADM Date: 06/21/24 Loc: HO.XRAY Attending Dr: Mau Fong MD Ordering Physician: Mau Fong MD Date of Service: 06/21/24 Procedure(s): XR ribs LT min 3V w CXR1V Accession Number(s): [id number] cc: Mau Fong MD EXAMINATION: XR RIBS, [...] by: Denny Winters MD 06/21/2024 11:13 AM [facility] Dictated By: Denny Winters MD Signed By: <Electronically signed by Denny Winters MD in OV> 06/21/24 1113 DD/ 0823 TD/TT: 06/21/24 0841 Shuttleless Loom Weaver: [address] [address] XRay Report Signed Patient: Tenzin Terry ra MR#: [id number] 2 : 1960 Acct:[id number] Age/Sex: 63 / F ADM Date: 06/21/24 Loc: HO.XRAY Attending Dr: Mau Fong MD Ordering Physician: Mau Fong MD Date of Service: 06/21/24 Procedure(s): XR rib s LT min 3V w CXR1V Accession Number(s): [id number] cc: Mau Fong MD EXAMINATION: XR RIBS, LEFT CLINICAL INFORMATION: Left-sided rib pain. COMPARISON: Chest radiographs dexter ríos 12/01/2017. TECHNIQUE: PA view the chest as [...] by: Denny Winters MD 06/21/2024 11:13 AM [facility] Dictated By: Denny Winters MD Signed By: <Electronically signed by Denny Winters MD in OV> 06/21/24 1113 DD/ 0823 TD/TT: 06/21/24 0841 Shuttleless Loom Weaver: SR Reason For Referral No Information Medications Medication [...] pt wa s given the vaccine at [facility] in [place]. Flu Vaccine IM Intramuscular 04/28/2018 Administered pt wa s given the vaccine at [facility] in [place]. TDaP IM Intramuscular 04/28/2018 Administered pt was given the vaccine at [facility] in [facility]. PPSV23 (Pnemovax) IM Intramuscular 04/28/2018 Administered pt was given the vaccine at the [facility] in [place]. Tetanus Unknown 04/28/2018 Administered Fluarix Quadrivalent IM Intramuscular 04/06/2019 Administe red pt was given the vaccine at [facility] in [place]. 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 Problem 57472091 Essential hypert ension (I10) Active confirmed Problem Psoriasis (7259964) Psoriasis (L40.9) Active confirmed Problem 72973696 Dysthymia (F34.1) Active confirmed Problem 282349090 Recurrent sinus infections (J32.9) Active confirmed Problem 00473287 Hypercholesterol emia (E78.00) Active confirmed Problem 779724337 Hyperplastic col onic polyp, unspecified part of colon (K63.5) Active confirmed Problem 219738564 Temporary low pl atelet count (D69.6) Active [...] Mau Fong MD [address] [place] [id number] 06/11/2024 Mau Fong Hypercholesterolemia E78.00 ; Annual physical exam Z00.00 ; Essential hypertension I10 ; Rib pain on left side R07.81 and Depression screening Z13.31 Mau Fong MD [address] [place] [id number] 10/08/2024 Mau Fong Insect bite (nonveno mous) of left shoulder, initial encounter S40.262A Mau Fong MD [address] [place] [id number] 12/10/2024 Mau Fong Essential hypertensi on I10 ; Hypercholesterolemia E78.00 and Tick bite W57.XXXA Mau Fong MD [address] [place] [id number] 03/21/2025 Mau Fong Labyrinthine dysfunc tion, bilateral H83.2X3 ; Tick bite W57.XXXA and Essential hypertension I10 Mau Fong MD [address] [place] [id number] 06/21/2024 Mau Fong MD [address] [place] [id number] 12/06/2024 Mau Fong Insect bite (nonveno mous) of left shoulder, initial encounter S40.262A Mau Fong MD [address] [place] [id number] 03/14/2025 Mau Fong Assessments Encounter Date Diagnosis [...] - E78.00) stable, will continue current regiment 03/21/2025 Labyrinthine dysfunction, bilateral (ICD-10 - H83.2X3) patient vrbalized understanding of medication and directions for use 03/21/2025 Tick bite (ICD-10 - W57.XXXA) pending lab 12/06/2024 Insect bite (nonvenomous) of left shoulder, initial encounter (ICD-10 - S40.262A) 06/11/2024 Essential hypertensi on (ICD-10 - I10) well controlled, will continue current regiment 12/10/2024 Tick bite (ICD-10 - W57.XXXA) pending diagnostic labs 03/21/2025 Essential hypertensi on (ICD-10 - I10) has mostly good readings so will follow along, will coontnue current regiment 06/11/2024 Rib pain on left josé e (ICD-10 - R07.81) pending diagnostic testing 06/11/2024 Depression screening (ICD-10 - Z13.31) negative screen Plan Of Treatment Pending Test Test Name Order Date BONE DENSITY DEXA 05/25/2021 XR ribs LT 2V 06/11/2024 Next Appt Details Provider Name:Mau Benjamin ier, 06/10/2025 07:45:00 AM, [address] [place] [address], [address], [place], [phone], Provider Name:Mau Benjamin ier, 06/17/2025 01:00:00 PM, [address] [place] [address], [address], [place], [place], [phone], Insurance Providers Payer Name Payer Address Payer Phone Subscriber Number Group Number Insured Name Patient Relationship to Insured Coverage Start Date Coverage End Date [employer]OSS [employer] BLUE [employer]IELD [address] [place], [place] [phone] [id number] ELEANOR TERRY Self - patient is the insured Medical (General) History Medical History History ICD Code colonoscopy done 03/08/[address] Lokesh Licona in [place] - repeat 10 years Colonoscopy 09-22-21 Dr Chuckie Skelton [facility], repeat 5yrs 2026
--- OUTSIDE RECORDS SUMMARY | 2025-04-22 08:55 | XMS_ITS | Encounter Summary ---
Author Organization [facility] Address [address] [facility] [address] [place] [address] Phone Care Team Providers Care Clark Driver Name Role Phone Mau Fong MD Primary Care Provider Mau Fong MD Unavailable [phone] Encounter Details Date Type Department Care Team (Late st Contact Info) Description 09/22/2021 Procedure Pass [facility] Endoscopy Admitting Dept Virtual Department [address] [place] [address] Social History Tobacco Use Types Packs/Day Years [...] on filedocumented in this encounter Care Teams Clark Driver Relationship Specialty Start Date End Date Mau Fong MD [address] [place] [address] [place] [address] PCP - General Internal Medicine 08/18/20 Mau Fong MD [address] [place] [address] [place] [address] Internal Medicine 08/18/20 documented as of this encounter Additional Source Comments The information contained in this document represents components of the legal health record. It is not the complete legal health record.[facility]
--- OUTSIDE RECORDS SUMMARY | 2025-04-22 08:55 | XMS_ITS | Clinical Summary ---
Author Organization [facility] Address [address] [facility] [address] [place] [id number] Phone Care Team Providers Care Machinery Erector Name Role Phone Mau Fong MD Primary Care Provider Mau Fong MD Unavailable [phone] Allergies No known active allergies Medications FLUoxetine (PROZAC) 10 MG capsule Take 1 capsule by mouth every morning. Active Medication-Free Text multivitamin Active atorvastatin (LIPITOR) 20 MG tablet Take 20 mg by mouth daily. 2 Active cholecalciferol , vitamin D3, 12.5 mcg/5 mL (500 unit/5 mL) Liqd Take by mouth. Activ e calcium cgm-uoiivgfyo-X 3-zinc 84 mg-24 mg- 10 mcg/5 mL [...] this topic Medical Devices Implanted Type Area Roofing Foreman Device Identifier Shelf Expiration Date Model / [...] (12/03/2024 7:56 AM EDT) HDL 61 mg/dL [facility] Comment: Interpretation <40 mg/dL: Low HDL cholesterol (major risk factor for CHD) Greater than or equal to 60 mg/dL: High HDL cholesterol ( negative risk factor for CHD) HDL - cholesterol is affected by a number of factors, e.g. smoking, excerise, hormones, sex and age. CHOLESTEROL 145 0 - 240 mg/dL [facility] TRIGLYCERIDES 126 30 - 160 mg/dL [facility] LDL 59 50 - 129 mg/dL [facility] Comment: LDL levels in terms of risk for coronary heart disease: <100 mg/dL: Optimal 100-129 mg/dL: Near or above optimal 130-159 mg/dL: Borderline high 160-189 mg/dL: High >190 mg/dL: Very High CARDIAC RISK RATIO 2.4(L) 3.3 - 4.4 C [facility] Blood 12/03/2024 7:56 AM EDT 12/03/2024 7:58 AM EDT us Mau Fong MD LAB BLOOD ORDERABLES Fi nal Result [address] [address] * Pap Test (05/22/2024 12:00 AM EST) 05/22/2024 05/23/2024 10: 11 AM EST Narrative SEE NARRATIVE - 05/28/2024 3:29 PM EST [address] [address] Bulk Loader: Chuckie Meza MD [facility]PENTER [facility]ATE Cytology Report FINAL DIAGNOSIS A. PAP SMEAR (THIN PREP) CE: SPECIMEN ADEQUACY: Satisfactory for evaluation; transformation zone present. INTERPRETATION: NEGATIVE FOR INTRAEPITHELIAL LESION OR MALIGNANCY. Atrophy. This specimen was analyzed by the automated ThinPrep Imaging System ([employer] and the selected childress were reviewed by a chute builder. Electronically Signed Out By: DANNA Trinidad(ASC) The [...] by real-time polymerase chain reaction (PCR) at [facility], [address] [place] [address] using the FDA-approved BD Onclarity9 HPV Assay with extended genotyping. Uses of the assay in scenarios other than those approved by the FDA should be considered off-label use. The accuracy and precision of this test for all other off-label specimen sources has been verified in the Cytopathology Laboratory of the [facility] and has not been cleared or [...] : 1960 (Age: 63) Sex: F Institution[facility] Date of Collection: 05/22/2024 Date of Reported: [...] 61 Admit Type: Outpatient Gender: Female Room: [place] [address] Referring MD: Mau Fong MD Exam Type: [...] monitored continuously. The Olympus adult variable colonoscope [id number] #[id number] was introduced through the anus and [...] 10:18 AM Procedure Code(s): --- Professional --- 16598, Colonoscopy, flexible; with removal of tumor(s), polyp(s), or other lesion(s) by snare technique --- Technical --- 88079, Colonoscopy, flexible; with removal of tumor(s), polyp(s), [...] or abscess without bleeding CPT copyright 2020 [employer]. All rights reserved. The codes documented in this report are preliminary and upon inspector material disposition reviewmay be revised to meet current compliance requirements. Procedure Date: 09/22/2021 10:18:[address] [place] [id number] Mau Fong MD GI PROCEDURE ORDERABLES Final Result * MAMMOGRAPHY FOR RESULT ENTRY ONLY (05/16/2019) Jazmyn Thornton MD HEALTH MAINTENANCE Final R esult from Last 3 Months or Most Recently Relevant to Health Maintenance Insurance [facility] PPO [facility] PPO BLUE [employer] OUT OF STATE PPO BLUE [employer] OUT OF STATE PPO [employer]UE [place] OUT OF STATE PPO BLUE [place] OUT OF STATE PPO BLUE [place] OUT OF STATE PPO BLUE [place] OUT OF STATE PPO BLUE [place] OUT OF STATE PPO BLUE [place] OUT OF STATE PPO BLUE [place]OSS OUT OF STATE PPO BLUE CROSS OUT OF [facility] PPO BLUE CROSS OUT OF [facility] PPO BLUE CROSS OUT OF [facility] PPO [employer] OUT OF STATE PPO [employer] OUT OF STATE PPO [employer] OUT OF STATE PPO [facility] OUT OF STATE PPO Care Teams Machinery Erector Relationship Specialty Start Date End Date Mau Fong MD [address] [place] [address] [place] [address] PCP - General Internal Medicine 08/18/20 Mau Fong MD [address] [place] [address] [place] [address] Internal Medicine 08/18/20 Additional Source Comments The information contained in this document represents components of the legal health record. It is not the complete legal health record.[facility]
== END 2025-04-22 08:27 | disposition home or self-care (01) ==
LOC: HO.MAMMO 08:26
PROVIDERS: PCP Internal Medicine; Visit Provider Internal Medicine
DX: Z12.31 Encounter for screening mammogram for malignant neoplasm of breast (principal)
CPT/HCPCS: 77063; 77067

== ENCOUNTER → 2025-04-22 08:30 | Outpatient (BNV) | payer BC, SELFPAY | PROVIDERS: PCP Internal Medicine; Visit Provider Internal Medicine | DX: Z12.31 Encounter for screening mammogram for malignant neoplasm of breast (principal) | CPT/HCPCS: 77063; 77067 ==